=== PATIENT | male | born 1945 | race Caucasian/White ===

== ENCOUNTER 2018-08-01 12:54 | Inpatient (IN) | payer MEDICARE ==
[2018-08-01] MEDS ORDERED: DIPH,PERTUS(ACELL)TETVAC-LF 0.5 ML VIAL IM ONE (13:00)
[2018-08-01] MEDS ORDERED: LIDOCAINE 1% INJ 10MG/ML (20 ML MDV) SQ STA (13:00)
[2018-08-01] MEDS ORDERED: RABIES VACC,HUMAN DIPLOID (PF) 2.5 UNIT KIT IM ONE (13:16)
[2018-08-01] MEDS ORDERED: RABIES IMMUNE GLOB 300 UNIT/ML 5 ML VIAL IM ONE (13:16)
[2018-08-01] MEDS ORDERED: SODIUM CHLORIDE 0.9% 1,000 ML IV STA (13:18)
[2018-08-01] MEDS ORDERED: CLINDAMYCIN 600 MG in DEXTROSE 5% IN WATER 50 ML IVPB STA ×2 (13:37)
[2018-08-01 13:58] LABS: Basophils # (A) 0.1 k/uL (0-0.2); Basophils % (A) 1 %; Eosinophils # (A) 0.3 k/uL (0-0.7); Eosinophils % (A) 3 %; HCT 45.1 % (39.0-53.0); HGB 14.6 gm/dL (13.0-17.5); Lymphocytes % (A) 9 %; MCH 31.4 pg (25.0-35.0); MCHC 32.4 g/dL (31.0-37.0); Mean Platelet Volume 6.9; Monocytes # (A) 0.5 k/uL (0-1.0); Monocytes % (A) 5 %; Neutrophils # (A) 8.6 k/uL (1.3-7.7); Neutrophils % (A) 82 %; Platelet Count 280 k/uL (150-450); RBC 4.64 m/uL (4.30-5.90); RDW 13.5 % (11.5-15.5); WBC 10.6 k/uL (3.8-10.6)
[2018-08-01 14:06] LABS: ALT 42 U/L (21-72); AST 35 U/L (17-59); Alkaline Phosphatase 92 U/L (38-126); Anion Gap 8 mmol/L; Blood Urea Nitrogen 26 mg/dL (9-20); Calcium 9.2 mg/dL (8.4-10.2); Carbon Dioxide 28 mmol/L (22-30); Chloride 103 mmol/L (98-107); Glucose 123 mg/dL (74-99); Potassium 4.3 mmol/L (3.5-5.1); Sodium 139 mmol/L (137-145); Total Bilirubin 0.5 mg/dL (0.2-1.3)
--- NOTE | 2018-08-01 14:38 | XR ---
EXAMINATION TYPE: XR wrist complete RT DATE OF EXAM: 08/01/2018 COMPARISON: None HISTORY: Pain and swelling dog bite TECHNIQUE: Right wrist is examined in 4 projections. FINDINGS: There is prominent soft tissue swelling present. No radiopaque foreign body is evident. No acute fractures are evident. IMPRESSION: 1. No acute osseous abnormality. 2. No radiopaque foreign body. 3. Prominent soft tissue swelling.
--- NOTE | 2018-08-01 14:40 | XR ---
EXAMINATION TYPE: XR hand complete RT DATE OF EXAM: 08/01/2018 COMPARISON: None HISTORY: Pain, dog bite TECHNIQUE: Three-view right hand FINDINGS: No acute fractures are evident. Joint space narrowing is present at the distal interphalang eal joint space. Milder joint space narrowing is present diffusely. No acute fractures are evident. T here is prominent soft tissue swelling present. No radiopaque foreign bodies are evident. IMPRESSION: 1. Prominent soft tissue swelling. 2. Degenerative joint changes. 3. No acute fractures
--- NOTE | 2018-08-01 15:05 | ED ---
General Adult HPI - General Source: patient, RN notes reviewed, old records reviewed Mode of arrival: ambulatory Limitations: no limitations <Jayden Phillips - Last Filed: 08/01/18 15:37> <Damian Mendez - Last Filed: 08/01/18 15:57> - General Chief complaint: Animal Bite Stated complaint: DOG BITE Time Seen by Provider: 08/01/18 13:00 - History of Present Illness Initial comments: 73-year-old male patient passed no history of hypertension, hyperlipidemia presents to ED with infection of his right hand. Patient fourth as bitten by dog on 07/16. Patient was seen in urgent care, at that time patient was prescribed Augmentin, his tetanus updated and he was administered 1 g Rocephin. Patient reports that since then he has had some swelling and some inflammation of the dorsal aspect of his right hand. Patient also reports some erythema. Patient denies any systemic symptoms. Patient denies any fevers chills, nausea vomiting diarrhea, chest pain, shortness of breath. Patient does report that he was advised by the health department to receive rabies prophylaxis as the dogs were unable to be located. Systemic: Pt denies fatigue, myalgia, fever/chills, rash. Pt denies weakness, night sweats, weight loss. Neuro: Pt denies headache, visual disturbances, syncope or pre-syncope. HEENT: Pt denies ocular discharge or irritation, otalgia, rhinorrhea, pharyngitis or notable lymphadenopathy. Cardiopulmonary: Pt denies chest pain, SOB, heart palpitations, dyspnea on exertion. Abdominal/GI: Pt denies abdominal pain, n/v/d. : Pt denies dysuria, burning w/ urination, frequency/urgency. Denies new onset urinary or bowel incontinence. MSK: Pt denies myalgia, loss of strength or function in extremities. Neuro: Pt denies new onset weakness, paresthesias. (Jayden Phillips) - Related Data Allergies Allergy/AdvReac Type Severity Reaction Status Date / Time No Known Allergies Allergy Verified 08/01/18 12:59 Review of Systems ROS Other: All systems not noted in ROS Statement are negative. <Jayden Phillips - Last Filed: 08/01/18 15:37> ROS Other: All systems not noted in ROS Statement are negative. <Damian Mendez - Last Filed: 08/01/18 15:57> ROS Statement: Those systems with pertinent positive or pertinent negative responses have been documented in the HPI. Past Medical History Past Medical History: Hyperlipidemia, Hypertension History of Any Multi-Drug Resistant Organisms: None Reported Past Surgical History: No Surgical Hx Reported Past Psychological History: No Psychological Hx Reported Smoking Status: Never smoker Past Alcohol Use History: None Reported Past Drug Use History: None Reported <Jayden Phillips - Last Filed: 08/01/18 15:37> General Exam Limitations: no limitations <Jayden Phillips - Last Filed: 08/01/18 15:37> - General Exam Comments Initial Comments: Constitutional: NAD, AOX3, Pt has pleasant affect. HEENT: NC/AT, trachea midline, neck supple, no lymphadenopathy. Posterior pharynx non erythematous, without exudates. External ears appear normal, without discharge. Mucous membranes moist. Eyes PERRLA, EOM intact. There is no scleral icterus. No pallor noted. Cardiopulmonary: RRR, no murmurs, rubs or gallops, no JVD noted. Lungs CTAB in anterior and posterior amor. No peripheral edema. Abdominal exam: Abdomen soft and non-distended. Abdomen non-tender to palpation in all 4 quadrants. Bowel sounds active in LLQ. No hepatosplenomegaly. No ecchymosis Neuro: CN II-XII grossly intact. No nuchal rigidity. MSK: Right hand displayed a mild amount of erythema, edema at dorsal aspect. Full active range of motion. Radial pulse +2. 1 x 1 cm area of purulent drainage noted. No streaking. No posterior calf tenderness bilaterally, homans sign negative bilaterally. Posterior tibialis and radial pulse +2 bilaterally. Sensation intact in upper and lower extremities. Full active ROM in upper and lower extremities, 5/5 stregnth. (Jayden Phillips) Course Vital Signs 08/01/18 08/01/18 12:55 15:01 Temperature 98.3 F Pulse Rate 68 70 Respiratory 22 20 Rate Blood Pressure 156/74 155/70 O2 Sat by Pulse 96 96 Oximetry Medical Decision Making - Lab Data Result diagrams: 08/01/18 13:41 08/01/18 13:41 <Jayden Phillips - Last Filed: 08/01/18 15:37> - Lab Data Result diagrams: 08/01/18 13:41 08/01/18 13:41 <Damian Mendez - Last Filed: 08/01/18 15:57> - Medical Decision Making 73-year-old male patient passed no history of hypertension, hyperlipidemia presents to ED with infection of his right hand. Patient fourth as bitten by dog on 07/16. Patient was seen in urgent care, at that time patient was prescribed Augmentin, his tetanus updated and he was administered 1 g Rocephin. Patient reports that since then he has had some swelling and some inflammation of the dorsal aspect of his right hand. Patient also reports some erythema. Patient denies any systemic symptoms. Patient denies any fevers chills, nausea vomiting diarrhea, chest pain, shortness of breath. Patient does report that he was advised by the health department to receive rabies prophylaxis as the dogs were unable to be located. Pt VSS, afebrile. Physical exam displayed: Right tyson d displayed a mild amount of erythema, edema at dorsal aspect. Full active range of motion. Radial pulse +2. 1 x 1 cm area of purulent drainage noted. No streaking. Laboratory investigations revealed non-impressive CBC, CMP. Plain film of hand and wrist displayed soft tissue swelling. Patient administered rabies prophylaxis. Patient started on clindamycin and levofloxacin. Patient will be admitted to hospital for further evaluation. Patient's disease consult that. Case discussed with Dr. Mendez. (Jayden Phillips) I, Laz Mendez, personally saw and examined the patient. I have reviewed and agree with the PA findings, including all diagnostic interpretations and treatment plans as written unless otherwise stated. I was present for the quintero portions of any procedures performed and the inclusive time noted for any critical care statement. (Damian Mendez) - Lab Data Lab Results 08/01/18 08/01/18 08/01/18 Range/Units 13:41 13:41 13:41 WBC 10.6 (3.8-10.6) k/uL RBC 4.64 (4.30-5.90) m/uL Hgb 14.6 (13.0-17.5) gm/dL Hct 45.1 (39.0-53.0) % MCV 97.0 (80.0-100.0) fL MCH 31.4 (25.0-35.0) pg MCHC 32.4 (31.0-37.0) g/dL RDW 13.5 (11.5-15.5) % Plt Count 280 (150-450) k/uL Neutrophils % 82 % Lymphocytes % 9 % Monocytes % 5 % Eosinophils % 3 % Basophils % 1 % Neutrophils # 8.6 H (1.3-7.7) k/uL Lymphocytes # 1.0 (1.0-4.8) k/uL Monocytes # 0.5 (0-1.0) k/uL Eosinophils # 0.3 (0-0.7) k/uL Basophils # 0.1 (0-0.2) k/uL Sodium 139 (137-145) mmol/L Potassium 4.3 (3.5-5.1) mmol/L Chloride 103 (98-107) mmol/L Carbon Dioxide 28 (22-30) mmol/L Anion Gap 8 mmol/L BUN 26 H (9-20) mg/dL Creatinine 0.64 L (0.66-1.25) mg/dL Est GFR (CKD-EPI)AfAm >90 (>60 ml/min/1.73 sqM) Est GFR (CKD-EPI)NonAf >90 (>60 ml/min/1.73 sqM) Glucose 123 H (74-99) mg/dL Plasma Lactic Acid Kole 1.2 (0.7-2.0) mmol/L Calcium 9.2 (8.4-10.2) mg/dL Total Bilirubin 0.5 (0.2-1.3) mg/dL AST 35 (17-59) U/L ALT 42 (21-72) U/L Alkaline Phosphatase 92 (38-126) U/L Total Protein 7.0 (6.3-8.2) g/dL Albumin 4.0 (3.5-5.0) g/dL Disposition <Jayden Phillips - Last Filed: 08/01/18 15:37> <Damian Mendez - Last Filed: 08/01/18 15:57> Clinical Impression: Cellulitis Disposition: ADMITTED IP TO THIS [facility] Condition: Stable Instructions (If sedation given, give patient instructions): Animal Bite (ED) Referrals: Kelechi Mccoy DO [Primary Care Provider] - 1-2 days
[2018-08-01] MEDS ORDERED: NALOXONE 0.4 MG/ML 1 ML VIAL IV PRN (15:35)
[2018-08-01] MEDS ORDERED: SODIUM CHLORIDE 0.9% 1,000 ML IV SCH (15:45)
[2018-08-01] MEDS ORDERED: LEVOFLOXACIN 500MG-D5W PMX 500 MG in DEXTROSE/WATER 1 100ML.BAG IVPB ONE (16:15)
[2018-08-01 17:45] VITALS: BMI 43.2
[2018-08-01] MEDS: AMPICILLIN-SULBACTAM 3 GM in SODIUM CHLORIDE 0.9% 100 ML IVPB SCH ×2 (19:38→23:57)
[2018-08-01] MEDS ORDERED: ALBUTEROL NEBULIZED 2.5 MG/3 ML INHALATION PRN (20:53)
[2018-08-01] MEDS: ATORVASTATIN 40 MG TAB PO SCH (22:01)
[2018-08-02] MEDS: AMPICILLIN-SULBACTAM 3 GM in SODIUM CHLORIDE 0.9% 100 ML IVPB SCH ×4 (05:12→23:59)
[2018-08-02] MEDS: ASPIRIN 81 MG PO SCH (07:24)
[2018-08-02] MEDS: PANTOPRAZOLE 40 MG TABLET PO SCH (07:24)
[2018-08-02] MEDS: CHOLECALCIFEROL 400 UNIT TAB PO SCH (07:25)
[2018-08-02] MEDS: FLUTICASONE 110 MCG INHALER INHALATION SCH ×2 (08:40→21:13)
[2018-08-02] MEDS ORDERED: amLODIPine 5 MG TAB PO SCH (09:00)
--- NOTE | 2018-08-02 10:44 | P.CNOR ---
History of Present Illness - HPI Consult date: 08/02/18 History of present illness: 73-year-old male patient presents to ED with infection of his right hand. He states that he was bitten by a stray dog in his yard on 07/16/2018. Patient was seen in urgent care, at that time and was prescribed Augmentin, his tetanus updated and he was administered 1 g Rocephin. Patient reports that since then he has had some swelling and some inflammation of the dorsal aspect of his right hand. Patient also reports some erythema. Patient denies any systemic symptoms. Patient denies any fevers chills, nausea vomiting diarrhea, chest pain, shortness of breath. Patient does report that he was advised by the health department to receive rabies prophylaxis as the dogs were unable to be located. We're consulted for orthopedic evaluation of the right hand. The patient states that his symptoms have improved significantly since his admission. Past Medical History Past Medical History: Hyperlipidemia, Hypertension History of Any Multi-Drug Resistant Organisms: None Reported Past Surgical History: No Surgical Hx Reported Past Psychological History: No Psychological Hx Reported Smoking Status: Never smoker Past Alcohol Use History: None Reported Past Drug Use History: None Reported Medications and Allergies Home Medications Medication Instructions Recorded Confirmed Type Acetaminophen Tab [Tylenol Tab] 1,000 mg PO Q6H PRN 08/01/18 08/01/18 History Albuterol Nebulized [Ventolin 2.5 mg INHALATION RT-QID PRN 08/01/18 08/01/18 His tory Nebulized] Amoxic-Pot Clav 875-125Mg 1 tab PO BID 08/01/18 08/01/18 History [Augmentin 875-125] Aspirin EC [Ecotrin Low Dose] 81 mg PO DAILY 08/01/18 08/01/18 History Atorvastatin [Lipitor] 40 mg PO HS 08/01/18 08/01/18 History Beclomethasone Dipropionate [Qvar 2 puff INHALATION RT-BID 08/01/18 08/01/18 History 40 mcg Redihaler] Cholecalciferol [Vitamin D3] 400 unit PO DAILY 08/01/18 08/01/18 History Glucosam/Hammad-Msm1/C/Jarod/Bosw 1 tab PO DAILY 08/01/18 08/01/18 History [Glucosamine-Chondroitin Tablet] Ibuprofen [Motrin] 400 mg PO Q6H PRN 08/01/18 08/01/18 History Omeprazole 20 mg PO DAILY 08/01/18 08/01/18 History amLODIPine [Norvasc] 5 mg PO DAILY 08/01/18 08/01/18 History guaiFENesin-DM 600/30MG [Mucinex 1 tab PO Q12H PRN 08/01/18 08/01/18 History Dm] Allergies Allergy/AdvReac Type Severity Reaction Status Date / Time No Known Allergies Allergy Verified 08/01/18 16:32 Physical Examination This is a pleasant 73-year-old male in no acute distress. He is alert and orie nted 3. He is hard of hearing exam of the right hand reveals no erythema or ecchymosis. There are small scabs from puncture wounds about the dorsum of the hand. There is mild soft tissue swelling noted. He has full extension and full flexion of the fingers. He can make a full fist without difficulty or pain. No pain with palpation about the dorsum of the hand. Neurovascular status the uppe r extremity is intact. Results X-rays of the right hand show no bony abnormality. No foreign body noted. No acute fracture identified. - Labs Labs: Abnormal Lab Results - Last 24 Hours (Table) 08/01/18 08/01/18 Range/Units 13:41 13:41 Neutrophils # 8.6 H (1.3-7.7) k/uL BUN 26 H (9-20) mg/dL Creatinine 0.64 L (0.66-1.25) mg/dL Glucose 123 H (74-99) mg/dL H & H 08/01/18 Range/Units 13:41 Hgb 14.6 (13.0-17.5) gm/dL Hct 45.1 (39.0-53.0) % Result Diagrams: 08/01/18 13:41 08/01/18 13:41 Assessment and Plan (1) Dog bite of right hand Current Visit: Yes Status: Acute Code(s): S61.451A - OPEN BITE OF RIGHT HAND , INITIAL ENCOUNTER; W54.0XXA - BITTEN BY DOG, INITIAL ENCOUNTER SNOMED Code(s): 913849267 (2) Cellulitis Current Visit: Yes Status: Acute Code(s): L03.90 - CELLULITIS, UNSPECIFIED SNOMED Code(s): 034511944 Plan: The clinical and x-ray findings are discussed the patient. Since he is improved, we will continue to follow. Continue IV antibiotics. No surgical indication at this time.
[2018-08-02] MEDS ORDERED: methylPREDNISolone SOD SUCCI 125 MG/2 ML VIAL IV STA (14:23)
[2018-08-02] MEDS ORDERED: ALPRAZolam 0.25 MG TAB PO PRN (14:25)
[2018-08-02] MEDS ORDERED: MELATONIN 3 MG TABLET PO PRN (14:25)
[2018-08-02] MEDS ORDERED: LACTULOSE 20 GM/30 ML CUP PO PRN (14:25)
[2018-08-02] MEDS ORDERED: ONDANSETRON 4 MG/2 ML VIAL IVP PRN (14:25)
[2018-08-02] MEDS ORDERED: ACETAMINOPHEN TAB 325 MG TAB PO PRN (14:25)
[2018-08-02] MEDS ORDERED: CALCIUM CARBONATE 500 MG CHEWABLE PO PRN (14:25)
[2018-08-02] MEDS ORDERED: MAGNESIUM HYDROXIDE 2,400 MG/10 ML CUP PO PRN (14:25)
[2018-08-02] MEDS: FUROSEMIDE 10 MG/ML 10 ML VIAL IV SCH ×2 (14:40→23:58)
[2018-08-02] MEDS: ENOXAPARIN 40 MG/0.4 ML SYRINGE SQ SCH (14:44)
--- NOTE | 2018-08-02 15:19 | XR ---
EXAMINATION TYPE: XR chest 2V DATE OF EXAM: 08/02/2018 COMPARISON: NONE HISTORY: Shortness of breath TECHNIQUE: Frontal and lateral views of the chest are obtained. FINDINGS: There is chronic emphysematous change with suggestion of tiny right greater than left pleu ral effusions though 1 costophrenic angle is not blunted on the lateral view. There is some lingular atelectasis and/or infiltrate confirmed on 2 views. The cardiac silhouette size is enlarged. The os seous structures are demineralized. There are few mild compression fracture deformities near thoracol umbar junction. IMPRESSION: Chronic changes and cardiomegaly with tiny right greater left pleural effusions and patch y lingular acute infiltrate and/or atelectasis.
[2018-08-02] MEDS: NAPROXEN 250 MG TAB PO SCH ×2 (15:22→21:15)
[2018-08-02] MEDS: BUDESONIDE 1 MG/2 ML NEBU INHALATION SCH ×2 (15:48→20:48)
[2018-08-02] MEDS: ALBUTEROL NEBULIZED 2.5 MG/3 ML INHALATION SCH ×2 (15:48→20:48)
--- NOTE | 2018-08-02 16:20 | HP ---
HISTORY AND PHYSICAL DATE OF SERVICE: August 01, 2018 PRESENTING COMPLAINT: Dog bite. HISTORY OF PRESENTING COMPLAINT: This is a pleasant 73-year-old patient who follows with Dr. Dickey. On July 16, he was walking up the driveway when a lady was walking the dog on a leash. The dog lashed up and bit his right hand. The patient went right back inside the house, put the water on and cleaned the wound out, but the hand progressed to get swollen, not much pain and decided to come into the ER. The patient does not know the whereabouts of the dog or the access spec. There were no fever and chills. The patient is admitted, started on antibiotics. Earlier today patient was switched to IV Unasyn by Dr. Powell. The patient had swelling which has actually gone down. Pain is not a problem. The patient also noticed that the patient has been rather short of breath for some time. He is not sure he has got asthma and gets easily short winded. The patient also had edema of the lower extremities. Denies any chest pain. Has not really seen anybody for the same. Short of breath some, even at rest. No cough. No fever or chills. REVIEW OF SYSTEMS: CONSTITUTIONAL: Tired. HEENT: None. RESPIRATORY as above. CARDIOVASCULAR: None. GASTROINTESTINAL: None. GENITOURINARY: None. MUSCULOSKELETAL: As above. DERMATOLOGICAL: As above. LYMPHATICS: None. PSYCHIATRY none. NEUROLOGICAL: None. PAST MEDICAL HISTORY: Hypertension, hyperlipidemia. PAST SURGICAL HISTORY: None. SOCIAL HISTORY: Does not smoke or drink alcohol. . Retired from housekeeping. FAMILY HISTORY: Family history reviewed, noncontributory to presentation. HOME MEDICATIONS: 1. Mucinex DM 1 tablet p.o. q.12h p.r.n. 2. Norvasc 5 mg p.o. daily. 3. Omeprazole 20 mg p.o. daily. 4. Glucosamine chondroitin 1 tablet p.o. daily. 5. Vitamin D3 400 units p.o. daily. 6. Q-Arun 40 mcg 2 puffs b.i.d. 7. Lipitor 40 mg q.h.s. 8. Aspirin 81 mg p.o. daily. 9. Augmentin 875 1 tablet p.o. b.i.d. 10.Ventolin 2.5 q.i.d. p.r.n. 11.Tylenol 1000 mg p.o. q.6h p.r.n. ALLERGIES: None. PHYSICAL EXAMINATION: VITAL SIGNS: On examination temp 97.9, pulse 84, respiratory 18, blood pressure 162/71, pulse ox 93 percent on room air. GENERAL APPEARANCE: Well built, BMI 43.2. Sitting at the edge of bed, slightly short of breath. EYES: Pupils equal. Conjunctivae normal. HEENT: External appearance of nose and ears normal. Oral cavity normal. NECK: JVD unable to assess. Mass not palpable. RESPIRATORY: Effort increased. LUNGS: Diminished breath sounds. Prolonged expiration and wheezing. CARDIOVASCULAR: First and second sounds normal. Gross edema present. ABDOMEN: Distended, soft. Liver and spleen not palpable. LYMPHATICS: No lymph nodes palpable in the neck and axilla. PSYCHIATRY: Alert and oriented times three. Mood and affect normal. NEUROLOGICAL: Pupils equal. Cranial nerves grossly intact. Power and sensation grossly intact. EXTREMITIES: Right hand does have a dog bite evan, appears to be healing well. Some puffiness. Mild tenderness. Minimal redness. PSYCHIATRY: Alert and oriented times three. Mood and affect normal. NEUROLOGICAL: Pupils equal cranial nerves grossly intact. Power and sensation grossly intact. MUSCULOSKELETAL: Evidence of osteoarthritis especially in the hands. INVESTIGATIONS: White count 10.6, hemoglobin 14.6, potassium 4.3, BUN 26, creatinine 0.64. ASSESSMENT: 1. Dog bite to the right hand dorsum about 17 days ago. Appears the dog was a domesticated dog. No other history is available about the dog. The patient has got no fever, chills otherwise. Seen by Dr. Powell for IV Unasyn. 2. Acute exacerbation of moderate persistent asthma. 3. Bilateral lower extremity edema. Rule out cor pulmonale versus congestive heart failure, doubt the latter. 4. Morbid obesity BMI 43.2. 5. Essential hypertension. 6. Uncontrolled. 7. Hyperlipidemia. 8. Lower extremity edema could be a side effect of amlodipine. PLAN: The patient is currently on IV Unasyn. We will add some naproxen for anti-inflammatory affect. We will also start the patient on IV Lasix. We will DC the amlodipine and use Zestoretic for blood pressure control to decrease edema. We will get a 2-D echocardiogram. Patient also put on inhaled steroids and a short burst of oral steroids. Care was discussed with the patient. Questions were answered. Copy to Dr. Dickey. MMLYNDON / MARTAN: [id number] /
[2018-08-02] MEDS ORDERED: LEVOFLOXACIN 500MG-D5W PMX 500 MG in DEXTROSE/WATER 1 100ML.BAG IVPB SCH (17:00)
[2018-08-02] MEDS: predniSONE 20 MG TAB PO SCH (18:16)
[2018-08-02] MEDS: LISINOPRIL-HCTZ 20-12.5 MG 1 EACH TAB PO SCH (21:16)
[2018-08-02] MEDS: ATORVASTATIN 40 MG TAB PO SCH (21:16)
[2018-08-03] MEDS: ALBUTEROL NEBULIZED 2.5 MG/3 ML INHALATION SCH ×6 (03:47→19:32)
[2018-08-03] MEDS: AMPICILLIN-SULBACTAM 3 GM in SODIUM CHLORIDE 0.9% 100 ML IVPB SCH ×3 (05:35→18:05)
[2018-08-03] MEDS: FLUTICASONE 110 MCG INHALER INHALATION SCH ×2 (07:21→19:31)
[2018-08-03] MEDS: BUDESONIDE 1 MG/2 ML NEBU INHALATION SCH ×2 (07:22→19:33)
[2018-08-03] MEDS: PANTOPRAZOLE 40 MG TABLET PO SCH (07:22)
[2018-08-03] MEDS: FUROSEMIDE 10 MG/ML 10 ML VIAL IV SCH (07:23)
--- NOTE | 2018-08-03 08:31 | P.PN ---
Subjective Progress Note Date: 08/03/18 Principal diagnosis: Cellulitis right hand, dog bite. This is a 73-year-old male who we are following regarding a dog bite to the right hand. He has no new complaints or concerns today. He states his hand pain is improved. He reports no new problems or concerns. Objective - Vital Signs Vital signs: Vital Signs Temp 97.6 F 08/03/18 07:00 Pulse 91 08/03/18 07:00 Resp 16 08/03/18 07:10 BP 136/70 08/03/18 07:00 Pulse Ox 91 L 08/03/18 07:00 Intake & Output 08/02/18 08/03/18 08/03/18 18:59 06:59 18:59 Intake Total 475 Balance 475 Intake: Oral 475 Other: # Voids 5 1 # Bowel Movements 1 - Exam This is a pleasant 73-year-old male in no acute distress. He is alert and oriented 3. He is short of breath this morning. Exam of the right upper extremity reveals no erythema or ecchymosis. Small healing puncture wounds to the dorsum of the hand have no drainage. He has full wrist and finger motion without difficulty or pain. He can make a full fist. Neurovascular status the upper extremity is intact. - Labs CBC & Chem 7: 08/01/18 13:41 08/01/18 13:41 Labs: Microbiology - Last 24 Hours (Table) 08/01/18 13:41 Blood Culture - Preliminary Blood No Growth after 24 hours Assessment and Plan (1) Dog bite of right hand Current Visit: Yes Status: Acute Code(s): S61.451A - OPEN BITE OF RIGHT HAND, INITIAL ENCOUNTER; W54.0XXA - BITTEN BY DOG, INITIAL ENCOUNTER SNOMED Code(s): 558035354 (2) Cellulitis Current Visit: Yes Status: Acute Code(s): L03.90 - CELLULITIS, UNSPECIFIED SNOMED Code(s): 554412765 Plan: The clinical and x-ray findings are discussed the patient. He may be discharged from an orthopedic standpoint. Follow-up as needed.
[2018-08-03] MEDS: CHOLECALCIFEROL 400 UNIT TAB PO SCH (09:37)
[2018-08-03] MEDS: NAPROXEN 250 MG TAB PO SCH ×3 (09:37→22:16)
[2018-08-03] MEDS: LISINOPRIL-HCTZ 20-12.5 MG 1 EACH TAB PO SCH ×2 (09:37→20:00)
[2018-08-03] MEDS: ENOXAPARIN 40 MG/0.4 ML SYRINGE SQ SCH (09:38)
[2018-08-03] MEDS: ASPIRIN 81 MG PO SCH (09:40)
[2018-08-03] MEDS: predniSONE 20 MG TAB PO SCH (09:40)
--- NOTE | 2018-08-03 10:05 | ECHOF ---
Referral Reason:assess LV function MEASUREMENTS -------- HEIGHT: 152.4 cm WEIGHT: 103.4 kg BP: RVIDd: 2.9 cm (< 3.3) IVSd: 1.3 cm (0.6 - 1.1) LVIDd: 5.2 cm (3.9 - 5.3) LVPWd: 1.4 cm (0.6 - 1.1) IVSs: 1.6 cm LVIDs: 4.4 cm LVPWs: 1.8 cm LAESV Index (A-L): 30.06 ml/m Ao Diam: 4.3 cm (2.0 - 3.7) AV Cusp: 2.3 cm (1.5 - 2.6) LA Diam: 2.9 cm (2.7 - 3.8) MV EXCURSION: 18.048 mm (> 18.000) MV EF SLOPE: 140 mm/s (70 - 150) EPSS: 0.3 cm MV E Marc: 0.74 m/s MV A Marc: 0.44 m/s MV E/A Ratio: 1.68 RAP: 5.00 mmHg RVSP: 14.41 mmHg FINDINGS -------- Sinus rhythm. This was a techncally difficult study with suboptimal views, , Lumason utilized for enhancement of im ages. The left ventricular size is normal. There is mild concentric left ventricular hypertrophy. Overa ll left ventricular systolic function is normal with, an EF between 55 - 60 %. The right ventricle is normal in size. The left atrium is mildly dilated. The right atrial size is normal. 5.0mg OF Lumason UTLIZED: 2 OR MORE WALL SEGMENTS NOT VISUALIZED. There is mild aortic valve sclerosis. There is no evidence of aortic regurgitation. Mild mitral annular calcification present. Mild mitral regurgitation is present. Mild tricuspid regurgitation present. There is no evidence of pulmonary hypertension. The right v entricular systolic pressure, as measured by Doppler, is 14.41mmHg. There is no pulmonic regurgitation present. Aortic Root is mildly dilated and measures 4.1cm. There is no pericardial effusion. CONCLUSIONS -------- 1. This was a techncally difficult study with suboptimal views, , Lumason utilized for enhancement of images. 2. The left ventricular size is normal. 3. There is mild concentric left ventricular hypertrophy. 4. Overall left ventricular systolic function is normal with, an EF between 55 - 60 %. 5. The right ventricle is normal in size. 6. The left atrium is mildly dilated. 7. The right atrial size is normal. 8. 5.0mg OF Lumason UTLIZED: 2 OR MORE WALL SEGMENTS NOT VISUALIZED. 9. Interatrial Septum not well visulized. 10. There is mild aortic valve sclerosis. 11. Mild mitral annular calcification present. 12. Mild tricuspid regurgitation present. 13. There is no evidence of pulmonary hypertension. 14. The right ventricular systolic pressure, as measured by Doppler, is 14.41mmHg. 15. There is no pulmonic regurgitation present. 16. Aortic Root is mildly dilated and measures 4.1cm. 17. There is no pericardial effusion. LEAD FRONT DESK AGENT: Tiffani Combs RDCS
[2018-08-03 11:41] LABS: Calcium 9.8 mg/dL (8.4-10.2); Potassium 4.1 mmol/L (3.5-5.1)
--- NOTE | 2018-08-03 11:50 | P.CONS ---
History of Present Illness - Reason for Consult Consult date: 08/03/18 Dog bite right hand - History of Present Illness This is a 73-year-old male who gives history that on July 16 an unknown dog lunged at him and bit his right hand. The animal was not provoked. There was a young woman walking with the dog with a leash in her hand. Patient and his were unable to find the dog or its tram inspector. Patient presented to the police department to make a report but police were unable to find the tram inspector as well. Patient then went to the urgent care and was prescribed Augmentin and also received Rocephin and tetanus was updated. He denies having any fever or chills at home. He states he is eating and drinking without difficulty. He did not have any improvement with the Augmentin and had increasing redness and swelling to the right hand. He came into [facility] emergency center for evaluation. He has been placed on Unasyn and seen by orthopedics with no plan for any intervention. He has had significant improvement of erythema. Although he continues to have edema this is also improved. Patient does have full range of motion. Patient also presented with lower extremity edema for which a strips were in place. Review of Systems All systems: negative Constitutional: Denies anorexia, Denies chills, Denies fever, Denies poor appetite, Denies weakness Eyes: denies blurred vision, denies pain Ears, nose, mouth and throat: Denies dysphagia, Denies headache, Denies sore throat, Denies vertigo Cardiovascular: Reports leg edema, Denies chest pain, Denies dyspnea on exertion, Denies lightheadedness, Denies shortness of breath, Denies syncope Respiratory: Denies cough, Denies cough with sputum, Denies dyspnea, Denies excessive sputum, Denies hemoptysis, Denies home oxygen, Denies wheezing Gastrointestinal: Denies abdominal pain, Denies diarrhea, Denies loss of appetit e, Denies nausea, Denies vomiting Genitourinary: Denies dysuria, Denies urinary retention Musculoskeletal: Denies frequent falls, Denies gait dysfunction, Denies myalgias Integumentary: Reports wounds, Denies pruritus, Denies rash Neurological: Denies aphasia, Denies change in mentation, Denies change in speech, Denies gait dysfunction, Denies numbness, Denies seizures, Denies weakness Psychiatric: Denies anxiety, Denies depression Endocrine: Denies fatigue, Denies weight change Past Medical History Past Medical History: Hyperlipidemia, Hypertension History of Any Multi-Drug Resistant Organisms: None Reported Past Surgical History: No Surgical Hx Reported Past Psychological History: No Psychological Hx Reported Smoking Status: Never smoker Past Alcohol Use History: None Reported Additional Past Alcohol Use History / Comment(s): Patient is a lifelong nonsmoker. No marijuana or illicit drug use or alcohol use. He lives at home with his . He has worked in the past in housekeeping and maintenance. They do have 1 dog in the home. Past Drug Use History: None Reported Medications and Allergies Home Medications Medication Instructions Recorded Confirmed Type Acetaminophen Tab [Tylenol Tab] 1,000 mg PO Q6H PRN 08/01/18 08/01/18 History Albuterol Nebulized [Ventolin 2.5 mg INHALATION RT-QID PRN 08/01/18 08/01/18 History Nebulized] Amoxic-Pot Clav 875-125Mg 1 tab PO BID 08/01/18 08/01/18 History [Augmentin 875-125] Aspirin EC [Ecotrin Low Dose] 81 mg PO DAILY 08/01/18 08/01/18 History Atorvastatin [Lipitor] 40 mg PO HS 08/01/18 08/01/18 History Beclomethasone Dipropionate [Qvar 2 puff INHALATION RT-BID 08/01/18 08/01/18 History 40 mcg Redihaler] Cholecalciferol [Vitamin D3] 400 unit PO DAILY 08/01/18 08/01/18 History Glucosam/Hammad-Msm1/C/Jarod/Bosw 1 tab PO DAILY 08/01/18 08/01/18 History [Glucosamine-Chondroitin Tablet] Ibuprofen [Motrin] 400 mg PO Q6H PRN 08/01/18 08/01/18 History Omeprazole 20 mg PO DAILY 08/01/18 08/01/18 History amLODIPine [Norvasc] 5 mg PO DAILY 08/01/18 08/01/18 History guaiFENesin-DM 600/30MG [Mucinex 1 tab PO Q12H PRN 08/01/18 08/01/18 History Dm] Allergies Allergy/AdvReac Type Severity Reaction Status Date / Time No Known Allergies Allergy Verified 08/01/18 16:32 Physical Exam Vitals: Vital Signs Temp Pulse Resp BP BP Pulse Ox 08/03/18 07:10 16 08/03/18 07:00 97.6 F 91 16 136/70 91 L 08/03/18 01:30 97.7 F 82 16 141/79 90 L 08/02/18 21:06 87 147/79 08/02/18 19:20 98.5 F 89 18 168/77 95 08/02/18 13:19 98.1 F 68 22 157/66 94 L Intake and Output 08/02/18 08/03/18 08/03/18 22:59 06:59 14:59 Intake Total 475 Balance 475 Intake: Oral 475 Other: # Voids 1 Gen: This is a 73-year-old male. He is sitting on the edge of the bed and appears to be comfortable and in no acute distress. Patient's is at the bedside and answers most questions. HEENT: Head is atraumatic, normocephalic. Pupils equal, round. Sclerae is anicteric. Conjunctiva pink. Patient is known to be hard of hearing. NECK: Supple. No JVD. No lymphadenopathy. No thyromegaly. LUNGS: Clear to auscultation. No wheezes or rhonchi. No intercostal retractions. HEART: Regular rate and rhythm. No murmur. ABDOMEN: Obese. Soft. Bowel sounds are present. No masses. No tenderness. EXTREMITIES: Tu wraps have been removed and edema appears to be much improved. Dorsalis pedis 1+ bilaterally. No open wounds noted. Onychomycosis bilaterally. NEUROLOGICAL: Patient is awake, alert and oriented x3. Cranial nerves 2 through 12 are grossly intact. Results Results: Laboratory Results WBC 10.6 k/uL (3.8-10.6) 08/01/18 13:41 RBC 4.64 m/uL (4.30-5.90) 08/01/18 13:41 Hgb 14.6 gm/dL (13.0-17.5) 08/01/18 13:41 Hct 45.1 % (39.0-53.0) 08/01/18 13:41 MCV 97.0 fL (80.0-100.0) 08/01/18 13:41 MCH 31.4 pg (25.0-35.0) 08/01/18 13:41 MCHC 32.4 g/dL (31.0-37.0) 08/01/18 13:41 RDW 13.5 % (11.5-15.5) 08/01/18 13:41 Plt Count 280 k/uL (150-450) 08/01/18 13:41 Neutrophils % 82 % 08/01/18 13:41 Lymphocytes % 9 % 08/01/18 13:41 Monocytes % 5 % 08/01/18 13:41 Eosinophils % 3 % 08/01/18 13:41 Basophils % 1 % 08/01/18 13:41 Neutrophils # 8.6 k/uL (1.3-7.7) H 08/01/18 13:41 Lymphocytes # 1.0 k/uL (1.0-4.8) 08/01/18 13:41 Monocytes # 0.5 k/uL (0-1.0) 08/01/18 13:41 Eosinophils # 0.3 k/uL (0-0.7) 08/01/18 13:41 Basophils # 0.1 k/uL (0-0.2) 08/01/18 13:41 Sodium 140 mmol/L (137-145) 08/03/18 10:35 Potassium 4.1 mmol/L (3.5-5.1) 08/03/18 10:35 Chloride 101 mmol/L (98-107) 08/03/18 10:35 Carbon Dioxide 29 mmol/L (22-30) 08/03/18 10:35 Anion Gap 10 mmol/L 08/03/18 10:35 BUN 36 mg/dL (9-20) H 08/03/18 10:35 Creatinine 0.96 mg/dL (0.66-1.25) 08/03/18 10:35 Est GFR (CKD-EPI)AfAm 90 (>60 ml/min/1.73 sqM) 08/03/18 10:35 Est GFR (CKD-EPI)NonAf 78 (>60 ml/min/1.73 sqM) 08/03/18 10:35 Glucose 150 mg/dL (74-99) H 08/03/18 10:35 Plasma Lactic Acid Kole 1.2 mmol/L (0.7-2.0) 08/01/18 13:41 Calcium 9.8 mg/dL (8.4-10.2) 08/03/18 10:35 Total Bilirubin 0.5 mg/dL (0.2-1.3) 08/01/18 13:41 AST 35 U/L (17-59) 08/01/18 13:41 ALT 42 U/L (21-72) 08/01/18 13:41 Alkaline Phosphatase 92 U/L (38-126) 08/01/18 13:41 NT-Pro-B Natriuret Pep 184 pg/mL 08/01/18 13:41 Total Protein 7.0 g/dL (6.3-8.2) 08/01/18 13:41 Albumin 4.0 g/dL (3.5-5.0) 08/01/18 13:41 CBC & Chem 7: 08/01/18 13:41 08/03/18 10:35 Labs: Microbiology - Last 24 Hours (Table) 08/01/18 13:41 Blood Culture - Preliminary Blood No Growth after 24 hours Assessment and Plan Plan: This is a 73-year-old male who presented Hospital following a dog bite to the right hand. He is currently on Unasyn and biotics for home will be addressed. He has had his tetanus status updated at the urgent care center. Patient is been followed by orthopedics with no plan for any intervention and he has been cleared for discharge. No active drainage so cultures were not obtained. Blood culture showing no growth after 24 hours. Further recommendations as patient progresses. The above dictated assessment and findings were discussed with Dr. Powell. The impression and plan of care have been directed as dictated. Christiane Levy nurse practitioner acting as scribe for Dr. Powell.
[2018-08-03] MEDS ORDERED: FUROSEMIDE 10 MG/ML 10 ML VIAL IVP SCH (16:00)
--- NOTE | 2018-08-03 16:58 | P.CON ---
Consult Note - . Consult date: 08/03/18 Assessment/Plan:: This is a 73-year-old male who gives history that on July 16 an unknown dog lunged at him and bit his right hand. The animal was not provoked. There was a young woman walking with the dog with a leash in her hand. Patient and his were unable to find the dog or its middle school librarian. Patient presented to the police department to make a report but police were unable to find the middle school librarian as well. Patient then went to the urgent care and was prescribed Augmentin and also received Rocephin and tetanus was updated. He denies having any fever or chills at home. He states he is eating and drinking without difficulty. He did not have any improvement with the Augmentin and had increasing redness and swelling to the right hand. He came into [facility] emergency center for evaluation. He has been placed on Unasyn and seen by orthopedics with no plan for any intervention. He has had significant improvement of erythema. Although he continues to have edema this is also improved. Patient does have full range of motion. Patient also presented with lower extremity edema for which a strips were in place.please see consult note is dictated by nurse practitioner Viviane Christiane Levy. Pleasant 73-year-old male who likely has some early dementia with in his driveway when a woman walking a dog came by him and the dog attacked his hand. He rushed into the house and washed his hand. He didn't think to get a name or number burning information about the dog. Did not recognize the daughter the person walking the animal. Patient also reconciling this was and was treated in the outpatient setting but worsened as came to hospital. Antibiotic therapy was initiated with Unasyn at the time of the consult call. Within hours and is now starting to show marked improvement. Pain is improved. Range of motion is generally normalize. He has no ascending erythema or lymphadenopathy or lymphangitis. Patient's is present in believe she can care for him at home. We'll ask for home care for at least a couple visits to make sure is doing relatively well. He may be discharged home today to complete his course of Augmentin. His rabies prophylaxis has already been initiated and should complete. The only way the vaccine schedule may be interrupted is if the identify the dog middle school librarian in the dog itself and verify its rabies vaccination record. I agree with evaluation, assessment and plan is dictated by nurse practitioner Mrs. Christiane Levy.
--- NOTE | 2018-08-03 19:41 | PN ---
PROGRESS NOTE DATE OF SERVICE: 08/03/2018 PRESENTING COMPLAINT: Short of breath. INTERVAL HISTORY: This patient presented with a dog bite, was on IV Unasyn. Hand is greatly improved. He was also felt to have asthma exacerbation and questionable congestive heart failure, though felt to be less likely. Patient was put on bronchodilators and steroids. Breathing is better. Hand is better. Tolerating a diet. His is present. REVIEW OF SYSTEMS: Done for constitutional, cardiovascular, GI, pulmonary; relevant findings as above. CURRENT MEDICATIONS: Reviewed. They include IV Unasyn, Ventolin. PHYSICAL EXAMINATION: Temperature 97.5, pulse 80, respiration 16, blood pressure 149/66, pulse ox 94%. GENERAL APPEARANCE: Sitting up in a chair. Breathing is much better. EYES: Pupils equal. Conjunctivae normal. NECK: JVD not raised. Mass not palpable. RESPIRATORY: Effort increased. LUNGS: Decreased breath sounds. Much improved wheezing. CARDIOVASCULAR: First and second sounds normal. Decreased edema. ABDOMEN: Soft, non-tender. Liver and spleen not palpable. PSYCHIATRY: Alert and oriented x3. Mood and affect normal. EXTREMITIES: Right arm swelling and redness decreased. INVESTIGATIONS: Potassium 4.1. BUN 36, creatinine 0.96. Two-D echo shows preserved LV function. ASSESSMENT: 1. Right hand dog bite, responding well to current antibiotics. 2. Rabies prophylaxis per Dr. Powell. 3. Acute exacerbation of moderate persistent asthma, with some improvement. 4. Bilateral lower extremity venous insufficiency. Doubt CHF. 5. Morbid obesity; body mass index of 43.2. 6. Essential hypertension. 7. Hyperlipidemia. PLAN: Continue current medication and treatment plan. Will switch the patient to oral Lasix. Keep the current dose of steroids for another 24 hours. Hoping patient can be discharged by tomorrow. MMODL / IJN: [id number] /
--- NOTE | 2018-08-03 19:48 | HP ---
HISTORY AND PHYSICAL HISTORY AND PHYSICAL ADDENDUM: Date of service for history and physical is 08/02/2018. (My H&P was dictated on 08/02/18 at 1435 hours.) The correct date of service is 08/02/2018. MMODL / IJN: [id number] /
[2018-08-03] MEDS: ATORVASTATIN 40 MG TAB PO SCH (20:00)
[2018-08-04] MEDS: AMPICILLIN-SULBACTAM 3 GM in SODIUM CHLORIDE 0.9% 100 ML IVPB SCH ×3 (00:13→11:45)
[2018-08-04 01:55] VITALS: RESP 16
[2018-08-04] MEDS: ALBUTEROL NEBULIZED 2.5 MG/3 ML INHALATION SCH ×3 (03:33→12:30)
[2018-08-04] MEDS: NAPROXEN 250 MG TAB PO SCH (08:03)
[2018-08-04] MEDS: PANTOPRAZOLE 40 MG TABLET PO SCH (08:03)
[2018-08-04] MEDS: predniSONE 20 MG TAB PO SCH (08:03)
[2018-08-04] MEDS: ENOXAPARIN 40 MG/0.4 ML SYRINGE SQ SCH (08:04)
[2018-08-04] MEDS: ASPIRIN 81 MG PO SCH (08:04)
[2018-08-04] MEDS: LISINOPRIL-HCTZ 20-12.5 MG 1 EACH TAB PO SCH (08:04)
[2018-08-04] MEDS: CHOLECALCIFEROL 400 UNIT TAB PO SCH (08:04)
[2018-08-04 09:12] LABS: Anion Gap 9 mmol/L; Blood Urea Nitrogen 47 mg/dL (9-20); Calcium 9.2 mg/dL (8.4-10.2); Carbon Dioxide 31 mmol/L (22-30); Chloride 102 mmol/L (98-107); Glucose 139 mg/dL (74-99); Potassium 3.7 mmol/L (3.5-5.1); Sodium 142 mmol/L (137-145)
[2018-08-04] MEDS: FLUTICASONE 110 MCG INHALER INHALATION SCH (09:23)
[2018-08-04] MEDS: BUDESONIDE 1 MG/2 ML NEBU INHALATION SCH (09:23)
[2018-08-04 09:46] VITALS: BP 131/61; PULSE 84; TEMP 98.7
--- NOTE | 2018-08-04 15:25 | P.PN ---
Subjective Progress Note Date: 08/04/18 This is a 73-year-old male who gives history that on July 16 an unknown dog lunged at him and bit his right hand. The animal was not provoked. There was a young woman walking with the dog with a leash in her hand. Patient and his were unable to find the dog or its audio visual engineer. Patient presented to the police department to make a report but police were unable to find the audio visual engineer as well. Patient then went to the urgent care and was prescribed Augmentin and also received Rocephin and tetanus was updated. He denies having any fever or chills at home. He states he is eating and drinking without difficulty. He did not have any improvement with the Augmentin and had increasing redness and swelling to the right hand. He came into [facility] emergency center for evaluation. He has been placed on Unasyn and seen by orthopedics with no plan for any intervention. He has had significant improvement of erythema. Although he continues to have edema this is also improved. Patient does have full range of motion. Patient also presented with lower extremity edema for which a strips were in place. 08/04/2018 patient is feeling better today. He did develop some increasing shortness of breath and acute exacerbation of underlying pulmonary disease yesterday and his discharge was held. He is a received several respiratory treatments in the dose of steroid and is feeling considerably better. He has denying other acute complaints today. The pain to the right hand is much imp roved with the antibiotic therapy that has initiated since his admission for the significant cellulitis related to the dog bite. He has no complaints of increasing pain and no ascending erythema to the arm. He has no other new acute complaints. She's had no fevers or chills. Objective - Vital Signs Vital signs: Vital Signs Temp 98.7 F 08/04/18 07:00 Pulse 84 08/04/18 07:00 Resp 16 08/04/18 07:00 BP 131/61 08/04/18 07:00 Pulse Ox 93 L 08/04/18 07:00 Intake & Output 08/03/18 08/04/18 08/04/18 18:59 06:59 18:59 Intake Total 475 250 Balance 475 250 Intake: Oral 475 250 Other: # Voids 0 # Bowel Movements 0 - Exam Gen: This is a 73-year-old male. He is sitting on the edge of the bed and appears to be comfortable and in no acute distress. Patient's is at the bedside and answers most questions. HEENT: Head is atraumatic, normocephalic. Pupils equal, round. Sclerae is anicteric. Conjunctiva pink. Patient is known to be hard of hearing. NECK: Supple. No JVD. No lymphadenopathy. No thyromegaly. LUNGS: Only few wheezes are heard at this time. He has symmetrical bilateral air entry no crackles or bronchial sounds are heard HEART: Regular rate and rhythm. No murmur. ABDOMEN: Obese. Soft. Bowel sounds are present. No masses. No tenderness. EXTREMITIES: Tu wraps have been removed and edema appears to be much improved. The bite antonio to the right hand are showing evidence of healing. The swelling and somewhat intensive erythema. No generally resolved. There is no ascending erythema or lymphangitis. There is no epitrochlear lymphadenopathy in the axilla being noted at this time. Dorsalis pedis 1+ bilaterally. No open wounds noted. Onychomycosis bilaterally of the feet. NEUROLOGICAL: Patient is awake, alert and oriented x3. Cranial nerves 2 through 12 are grossly intact. - Labs CBC & Chem 7: 08/01/18 13:41 08/04/18 07:58 Labs: Abnormal Lab Results - Last 24 Hours (Table) 08/04/18 Range/Units 07:58 Carbon Dioxide 31 H (22-30) mmol/L BUN 47 H (9-20) mg/dL Glucose 139 H (74-99) mg/dL Microbiology - Last 24 Hours (Table) 08/01/18 13:41 Blood Culture - Preliminary Blood No Growth after 48 hours Laboratory Results WBC 10.6 k/uL (3.8-10.6) 08/01/18 13:41 RBC 4.64 m/uL (4.30-5.90) 08/01/18 13:41 Hgb 14.6 gm/dL (13.0-17.5) 08/01/18 13:41 Hct 45.1 % (39.0-53.0) 08/01/18 13:41 MCV 97.0 fL (80.0-100.0) 08/01/18 13:41 MCH 31.4 pg (25.0-35.0) 08/01/18 13:41 MCHC 32.4 g/dL (31.0-37.0) 08/01/18 13:41 RDW 13.5 % (11.5-15.5) 08/01/18 13:41 Plt Count 280 k/uL (150-450) 08/01/18 13:41 Neutrophils % 82 % 08/01/18 13:41 Lymphocytes % 9 % 08/01/18 13:41 Monocytes % 5 % 08/01/18 13:41 Eosinophils % 3 % 08/01/18 13:41 Basophils % 1 % 08/01/18 13:41 Neutrophils # 8.6 k/uL (1.3-7.7) H 08/01/18 13:41 Lymphocytes # 1.0 k/uL (1.0-4.8) 08/01/18 13:41 Monocytes # 0.5 k/uL (0-1.0) 08/01/18 13:41 Eosinophils # 0.3 k/uL (0-0.7) 08/01/18 13:41 Basophils # 0.1 k/uL (0-0.2) 08/01/18 13:41 Sodium 142 mmol/L (137-145) 08/04/18 07:58 Potassium 3.7 mmol/L (3.5-5.1) 08/04/18 07:58 Chloride 102 mmol/L (98-107) 08/04/18 07:58 Carbon Dioxide 31 mmol/L (22-30) H 08/04/18 07:58 Anion Gap 9 mmol/L 08/04/18 07:58 BUN 47 mg/dL (9-20) H 08/04/18 07:58 Creatinine 0.91 mg/dL (0.66-1.25) 08/04/18 07:58 Est GFR (CKD-EPI)AfAm >90 (>60 ml/min/1.73 sqM) 08/04/18 07:58 Est GFR (CKD-EPI)NonAf 82 (>60 ml/min/1.73 sqM) 08/04/18 07:58 Glucose 139 mg/dL (74-99) H 08/04/18 07:58 Plasma Lactic Acid Kole 1.2 mmol/L (0.7-2.0) 08/01/18 13:41 Calcium 9.2 mg/dL (8.4-10.2) 08/04/18 07:58 Total Bilirubin 0.5 mg/dL (0.2-1.3) 08/01/18 13:41 AST 35 U/L (17-59) 08/01/18 13:41 ALT 42 U/L (21-72) 08/01/18 13:41 Alkaline Phosphatase 92 U/L (38-126) 08/01/18 13:41 NT-Pro-B Natriuret Pep 184 pg/mL 08/01/18 13:41 Total Protein 7.0 g/dL (6.3-8.2) 08/01/18 13:41 Albumin 4.0 g/dL (3.5-5.0) 08/01/18 13:41 Microbiology 08/01/18 13:41 Blood Blood Culture - Preliminary No Growth after 48 hours Assessment and Plan (1) Dog bite of right hand Narrative/Plan: Pleasant 73-year-old male who likely has some early dementia with in his driveway when a woman walking a dog came by him and the dog attacked his hand. He rushed into the house and washed his hand. He didn't think to get a name or number burning information about the dog. Did not recognize the daughter the person walking the animal. Patient also reconciling this was and was treated in the outpatient setting but worsened as came to hospital. Antibiotic therapy was initiated with Unasyn at the time of the consult call. Within hours and is now starting to show marked improvement. Pain is improved. Range of motion is generally normalize. He has no ascending erythema or lymphadenopathy or lymphangitis. Patient's is present in believe she can care for him at home. We'll ask for home care for at least a couple visits to make sure is doing relatively well. He may be discharged home today to complete his course of Augmentin. His rabies prophylaxis has already been initiated and should complete. The only way the vaccine schedule may be interrupted is if the identify the dog audio visual engineer in the dog itself and verify its rabies vaccination record. 08/04/2018 the patient is having further improvement today. The pain and swelling to the right hand have improved and he is ready for discharge on oral antibody therapy with Augmentin to complete the treatment for the cellulitis of the right hand. The protocol has been initiated to complete his rabies vaccines in the outpatient setting. As noted only after able to find the neighbor who owns a dog and obtain vaccine records will be be able to alter the need for the rabies vaccination. The patient's exacerbation of his COPD appears to be considerably improved and likely will discharge today. Antibiotics of Augmentin are ready sent. Current Visit: Yes Status: Acute Code(s): S61.451A - OPEN BITE OF RIGHT HAND, INITIAL ENCOUNTER; W54.0XXA - BITTEN BY DOG, INITIAL ENCOUNTER SNOMED Co de(s): [id number]
--- NOTE | 2018-08-06 06:10 | DS ---
DISCHARGE SUMMARY DATE OF ADMISSION: 08/01/2018 DATE OF DISCHARGE: 08/04/2018 FINAL DIAGNOSES: 1. Acute exacerbation of moderate persistent asthma, POA. 2. Right hand dog bite. 3. Bilateral lower extremity venous insufficiency. No CHF. 4. Morbid obesity, body mass index 43.2. 5. Essential hypertension. 6. Hyperlipidemia. CONSULTATION: Dr. Nelson Powell from Infectious Disease and Dr. Rayo Hill from Orthopedics. HOSPITAL COURSE: This pleasant 73-year-old gentleman was bitten by dog, held by a lady on a leash in his driveway. The whereabouts of the dog or the irrigator is not known. There was pain and swelling in the right hand and presented for the same. Was put on IV Unasyn and anti- inflammatory, greatly improved. The patient also on presentation found to be in acute asthma exacerbation, was given a burst of steroids and bronchodilators to which he was doing much better. A 2-D echocardiogram was done to rule out CHF. EF was well preserved. The patient's hand was greatly improved by the time of discharge. On examination, temperature 98.7, pulse 84, respirations 16, blood pressure 131/61, pulse ox 93% on room air. LUNGS: Fair entry. Right hand pain, swelling greatly improved. INVESTIGATIONS: Potassium 3.7, BUN 47, creatinine 0.91. DISCHARGE MEDICATIONS: 1. Rabies prophylaxis was coordinated by Dr. Powell. Other discharge medications: 1. Tylenol p.r.n. 2. Ventolin 2.5 q.i.d. p.r.n. 3. Aspirin 81 mg a day. 4. Lipitor 40 mg q.h.s. 5. Qvar 40 two puffs b.i.d. 6. Vitamin D3, 400 units a day. 7. Glucosamine chondroitin 1 tablet p.o. daily. 8. Omeprazole 20 mg p.o. daily. 9. Mucinex DM 1 tablet q.12 p.r.n. 10.Ventolin HFA 1 or 2 puffs q.6 p.r.n. 11.Augmentin 875 one tablet b.i.d. 14 . 12.Zestoretic 20/.5 one tab p.o. b.i.d. 13.Naproxen 250 mg t.i.d. 15 tablets. 14.Prednisone taper. Amlodipine was discontinued because of lower extremity swelling. Follow up with Dr. Powell in one week; Dr. Kelechi Dickey in 3 days. [facility]. Rabies vaccine is being coordinated by Dr. Powell. DONELL / ROSHAN: [id number] /
== END 2018-08-04 16:09 | disposition home or self-care (01) | DRG 603 ==
LOC: EC 12:54 → 4SSUR 17:01
PROVIDERS: ADMIT Hospitalist; ATTEND Hospitalist
DX: L03.113 Cellulitis of right upper limb (principal); J45.41 Moderate persistent asthma with (acute) exacerbation; Z68.41 Body mass index [BMI] 40.0-44.9, adult; E66.01 Morbid (severe) obesity due to excess calories; I87.2 Venous insufficiency (chronic) (peripheral); F03.90 Unspecified dementia, unspecified severity, without behavioral disturbance, psychotic disturbance, mood disturbance, and anxiety; S61.451A Open bite of right hand, initial encounter; E78.5 Hyperlipidemia, unspecified; I10 Essential (primary) hypertension; H91.90 Unspecified hearing loss, unspecified ear; Z79.82 Long term (current) use of aspirin; Z79.899 Other long term (current) drug therapy; Z23 Encounter for immunization; W54.0XXA Bitten by dog, initial encounter
CPT/HCPCS: 36415; 71046; 80048; 80053; 83605; 83880; 85025; 87040; 90375; 90471; 90675; 93306; 94640; 96365; 96367; 96372; 99285

== ENCOUNTER 2018-08-30 15:22 | Inpatient (IN) | payer MEDICARE ==
[2018-08-30] MEDS ORDERED: FUROSEMIDE 10 MG/ML 4 ML VIAL IV STA (16:39)
--- NOTE | 2018-08-30 16:43 | ED ---
General Adult HPI - General Chief complaint: Shortness of Breath Stated complaint: SOB Time Seen by Provider: 08/30/18 15:56 Source: patient Mode of arrival: wheelchair Limitations: no limitations - History of Present Illness Initial comments: Dictation was produced using [employer] dictation software. please excuse any grammatical, word or spelling errors. Chief Complaint: 73-year-old male presents with 2 weeks of shortness of breath. History of Present Illness: It is 73-year-old male. He has a past m edical history of dyslipidemia, hypertension presents today with 2 weeks of shortness of breath. Patient states he's been having worsening dyspnea especially upon exertion. He has no pain complaints at this time. Presents today with his will be to come to the emergency department today. He does report increased swelling in his bilateral lower extremities and around the girth of his abdomen. Does report some shortness of breath with lying supine. Patient has no pain complaints at this time. Denies any history of coronary artery disease. Patient denies any cardiac history. No coughing or constitutional symptoms. Does report that his shortness of breath has been progressively worsen since onset 14 days ago. The ROS documented in this emergency department record has been reviewed and confirmed by me. Those systems with pertinent positive or negative responses have been documented in the HPI. All other systems are other negative and/or noncontributory. PHYSICAL EXAM: General Impression: Alert and oriented x3, not in acute distress HEENT: Normocephalic atraumatic, extra-ocular movements intact, pupils equal and reactive to light bilaterally, mucous membranes moist. Cardiovascular: Heart regular rate and rhythm, S1&S2 audible, no murmurs, rubs or gallops Chest: Mild lung crackles laterally to the lung bases bilaterally Abdomen: Bowel sounds present, abdomen soft, non-tender, non-distended, no organomegaly Musculoskeletal: Pulses present and equal in all extremities, 2+ pitting edema to the bilateral lower extremities up to the knees Motor: no focal deficits noted Neurological: CN II-XII grossly intact, no focal motor or sensory deficits noted Skin: Intact with no visualized rashes Psych: Normal affect and mood ED course: 73-year-old male chief complaint of dyspnea for 2 weeks. Vital signs upon arrival are within acceptable limits.Review vital signs were obtained. Patient had respiratory rate in the 30s. Patient also showing signs of hypoxia on room air. Laboratory evaluation obtained. CBC is unremarkable. No leukocytosis. Coag panel is unremarkable. Urine creatinine shows phthisis suggest dehydration. Cardiac enzymes negative. Elevation and prematurity peptide. Chest x-ray was obtained showing interstitial infiltrates at the lung base. Discussed patient case with Dr. Najera who is willing to accept admission however he did request that a CT angios the chest performed for concerns of possible pulmonary embolus. CT was obtained showing no findings to suggest PE. Patient placed on supplemental oxygen. Patient given antibiotics for possible community acquired pneumonia. Patient be admitted with pulmonology on consult. Patient and family is understandable and agreeable to disposition. EKG interpretation: Ventricular rate 91, sinus rhythm, NM interval 200, QS 92, QTc 469. No NM prolongation, no QTC prolongation, no ST or T-wave changes noted. No old EKG for comparison. EKG shows nonspecific changes with Q waves in lead 3 and aVF - Related Data Home Medications Medication Instructions Recorded Confirmed Acetaminophen Tab [Tylenol] 1,000 mg PO Q6H PRN 08/01/18 08/30/18 Albuterol Nebulized [Ventolin 2.5 mg INHALATION RT-QID PRN 08/01/18 08/30/18 Nebulized] Aspirin EC [Ecotrin Low Dose] 81 mg PO DAILY 08/01/18 08/30/18 Atorvastatin [Lipitor] 40 mg PO HS 08/01/18 08/30/18 Beclomethasone Dipropionate [Qvar 2 puff INHALATION RT-BID 08/01/18 08/30/18 40 mcg Redihaler] Cholecalciferol [Vitamin D3] 400 unit PO DAILY 08/01/18 08/30/18 Glucosam/Hammad-Msm1/C/Jarod/Bosw 1 tab PO DAILY 08/01/18 08/30/18 [Glucosamine-Chondroitin Tablet] Ibuprofen [Motrin] 400 mg PO Q6H PRN 08/01/18 08/30/18 Omeprazole 20 mg PO DAILY 08/01/18 08/30/18 guaiFENesin-DM 600/30MG [Mucinex 1 tab PO Q12H PRN 08/01/18 08/30/18 Dm] amLODIPine [Norvasc] 5 mg PO DAILY 08/30/18 08/30/18 Previous Rx's Medication Instructions Recorded Albuterol Inhaler [Ventolin Hfa 1 - 2 puff INHALATION RT-Q6H PRN 08/04/18 Inhaler] #1 inhaler Allergies Allergy/AdvReac Type Severity Reaction Status Date / Time No Known Allergies Allergy Verified 08/30/18 16:27 Review of Systems ROS Statement: Those systems with pertinent positive or pertinent negative responses have been documented in the HPI. ROS Other: All systems not noted in ROS Statement are negative. Past Medical History Past Medical History: Hyperlipidemia, Hypertension History of Any Multi-Drug Resistant Organisms: None Reported Past Surgical History: No Surgical Hx Reported Past Psychological History: No Psychological Hx Reported Smoking Status: Former smoker Past Alcohol Use History: None Reported Past Drug Use History: None Reported - Past Family History Father Family Medical History: Myocardial Infarction (DE) General Exam Limitations: no limitations Course Vital Signs 08/30/18 08/30/18 08/30/18 15:50 16:15 16:20 Temperature 98.5 F Pulse Rate 83 80 90 Respiratory 18 18 38 H Rate Blood Pressure 127/68 158/83 O2 Sat by Pulse 95 93 L 95 Oximetry 08/30/18 08/30/18 08/30/18 16:30 16:40 16:50 Temperature Pulse Rate 90 88 86 Respiratory 24 33 H 35 H Rate Blood Pressure 158/83 165/75 165/75 O2 Sat by Pulse 95 91 L 91 L Oximetry Medical Decision Making - Lab Data Result diagrams: 08/30/18 16:34 08/30/18 16:34 Lab Results 08/30/18 08/30/18 08/30/18 Range/Units 16:34 16:34 16:34 WBC 7.2 (3.8-10.6) k/uL RBC 4.76 (4.30-5.90) m/uL Hgb 14.7 (13.0-17.5) gm/dL Hct 46.0 (39.0-53.0) % MCV 96.7 (80.0-100.0) fL MCH 30.9 (25.0-35.0) pg MCHC 31.9 (31.0-37.0) g/dL RDW 14.0 (11.5-15.5) % Plt Count 234 (150-450) k/uL Neutrophils % 76 % Lymphocytes % 11 % Monocytes % 8 % Eosinophils % 2 % Basophils % 1 % Neutrophils # 5.4 (1.3-7.7) k/uL Lymphocytes # 0.8 L (1.0-4.8) k/uL Monocytes # 0.6 (0-1.0) k/uL Eosinophils # 0.2 (0-0.7) k/uL Basophils # 0.1 (0-0.2) k/uL PT (9.0-12.0) sec INR (<1.2) APTT (22.0-30.0) sec Sodium 139 (137-145) mmol/L Potassium 4.6 (3.5-5.1) mmol/L Chloride 103 (98-107) mmol/L Carbon Dioxide 30 (22-30) mmol/L Anion Gap 6 mmol/L BUN 28 H (9-20) mg/dL Creatinine 0.71 (0.66-1.25) mg/dL Est GFR (CKD-EPI)AfAm >90 (>60 ml/min/1.73 sqM) Est GFR (CKD-EPI)NonAf >90 (>60 ml/min/1.73 sqM) Glucose 111 H (74-99) mg/dL Calcium 9.3 (8.4-10.2) mg/dL Magnesium 1.7 (1.6-2.3) mg/dL Total Bilirubin 0.6 (0.2-1.3) mg/dL AST 30 (17-59) U/L ALT 39 (21-72) U/L Alkaline Phosphatase 85 (38-126) U/L Troponin I (0.000-0.034) ng/mL NT-Pro-B Natriuret Pep 164 pg/mL Total Protein 6.9 (6.3-8.2) g/dL Albumin 4.2 (3.5-5.0) g/dL 08/30/18 08/30/18 Range/Units 16:34 16:34 WBC (3.8-10.6) k/uL RBC (4.30-5.90) m/uL Hgb (13.0-17.5) gm/dL Hct (39.0-53.0) % MCV (80.0-100.0) fL MCH (25.0-35.0) pg MCHC (31.0-37.0) g/dL RDW (11.5-15.5) % Plt Count (150-450) k/uL Neutrophils % % Lymphocytes % % Monocytes % % Eosinophils % % Basophils % % Neutrophils # (1.3-7.7) k/uL Lymphocytes # (1.0-4.8) k/uL Monocytes # (0-1.0) k/uL Eosinophils # (0-0.7) k/uL Basophils # (0-0.2) k/uL PT 10.1 (9.0-12.0) sec INR 0.9 (<1.2) APTT 26.9 (22.0-30.0) sec Sodium (137-145) mmol/L Potassium (3.5-5.1) mmol/L Chloride (98-107) mmol/L Carbon Dioxide (22-30) mmol/L Anion Gap mmol/L BUN (9-20) mg/dL Creatinine (0.66-1.25) mg/dL Est GFR (CKD-EPI)AfAm (>60 ml/min/1.73 sqM) Est GFR (CKD-EPI)NonAf (>60 ml/min/1.73 sqM) Glucose (74-99) mg/dL Calcium (8.4-10.2) mg/dL Magnesium (1.6-2.3) mg/dL Total Bilirubin (0.2-1.3) mg/dL AST (17-59) U/L ALT (21-72) U/L Alkaline Phosphatase (38-126) U/L Troponin I 0.025 (0.000-0.034) ng/mL NT-Pro-B Natriuret Pep pg/mL Total Protein (6.3-8.2) g/dL Albumin (3.5-5.0) g/dL Disposition Clinical Impression: Dyspnea Disposition: ADMITTED IP TO THIS HOSP Condition: Fair Referrals: Kelechi Mccoy DO [Primary Care Provider] - 1-2 days Decision Time: 19:03
[2018-08-30 16:49] LABS: Basophils # (A) 0.1 k/uL (0-0.2); Basophils % (A) 1 %; Eosinophils # (A) 0.2 k/uL (0-0.7); Eosinophils % (A) 2 %; HGB 14.7 gm/dL (13.0-17.5); Lymphocytes # (A) 0.8 k/uL (1.0-4.8); Lymphocytes % (A) 11 %; MCH 30.9 pg (25.0-35.0); MCHC 31.9 g/dL (31.0-37.0); MCV 96.7 fL (80.0-100.0); Mean Platelet Volume 6.9; Monocytes # (A) 0.6 k/uL (0-1.0); Monocytes % (A) 8 %; Neutrophils # (A) 5.4 k/uL (1.3-7.7); Neutrophils % (A) 76 %; Platelet Count 234 k/uL (150-450); RBC 4.76 m/uL (4.30-5.90); WBC 7.2 k/uL (3.8-10.6)
[2018-08-30 16:58] LABS: ALT 39 U/L (21-72); AST 30 U/L (17-59); Albumin 4.2 g/dL (3.5-5.0); Alkaline Phosphatase 85 U/L (38-126); Anion Gap 6 mmol/L; Blood Urea Nitrogen 28 mg/dL (9-20); Calcium 9.3 mg/dL (8.4-10.2); Carbon Dioxide 30 mmol/L (22-30); Chloride 103 mmol/L (98-107); Glucose 111 mg/dL (74-99); Magnesium 1.7 mg/dL (1.6-2.3); Potassium 4.6 mmol/L (3.5-5.1); Sodium 139 mmol/L (137-145); Total Bilirubin 0.6 mg/dL (0.2-1.3); Total Protein 6.9 g/dL (6.3-8.2)
[2018-08-30 16:59] LABS: INR 0.9 (<1.2); Partial Thromboplastin Time 26.9 sec (22.0-30.0); Prothrombin Time 10.1 sec (9.0-12.0)
--- NOTE | 2018-08-30 17:35 | XR ---
EXAMINATION TYPE: XR chest 2V DATE OF EXAM: 08/30/2018 COMPARISON: 08/02/2018 HISTORY: Short of breath TECHNIQUE: Frontal and lateral views of the chest are obtained. FINDINGS: There is blunting of costophrenic angles. Heart appears slightly enlarged. There is no ove rt heart failure. There is coarse interstitial density in the lower lung amor. There are chest lead s. There is 30% anterior wedging of T12 vertebra that is unchanged. IMPRESSION: Pleural reaction and interstitial infiltrates at the lung bases. No overt heart failure. Chest appear s slightly worse than last exam..
[2018-08-30] MEDS ORDERED: AZITHROMYCIN 500 MG in SODIUM CHLORIDE 0.9% 250 ML IVPB STA (17:39)
--- NOTE | 2018-08-30 18:58 | CT ---
EXAMINATION TYPE: CT angio chest DATE OF EXAM: 08/30/2018 6:25 PM COMPARISON: None HISTORY: Shortness of breath. CT DLP: 536.1 mGycm Automated exposure control for dose reduction was used. CONTRAST: CTA scan of the thorax is performed with IV Contrast, patient injected with 75 mL of Isovue 370, pulm onary embolism protocol. There are 3-D post processed images.. FINDINGS: There is some atelectasis at the lung bases. There is no pleural effusion. There is no pericardial ef fusion. There is normal contrast opacification of the pulmonary arteries. I see no filling defect. There is n o mediastinal adenopathy. There are no hilar masses. 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 IMPRESSION: NO EVIDENCE OF PULMONARY EMBOLISM. PATCHY ATELECTASIS IN THE LOWER LOBES. COMPRESSION FRACTURE T12 NO ALCIRA. This was also present on old chest x-ray 08/02/2018.
[2018-08-30] MEDS ORDERED: ACETAMINOPHEN TAB 325 MG TAB PO PRN (19:00)
[2018-08-30] MEDS ORDERED: ONDANSETRON 4 MG/2 ML VIAL IVP PRN (19:00)
[2018-08-30] MEDS ORDERED: NALOXONE 0.4 MG/ML 1 ML VIAL IV PRN (19:00)
[2018-08-30] MEDS ORDERED: guaiFENesin-DM 600/30MG 1 EACH TAB.ER.12H PO PRN (20:52)
[2018-08-30] MEDS ORDERED: IBUPROFEN 400 MG TAB PO PRN (20:52)
[2018-08-30] MEDS: ATORVASTATIN 40 MG TAB PO SCH (21:23)
[2018-08-30] MEDS: SODIUM CHLORIDE 0.45% 1,000 ML IV SCH (21:23)
[2018-08-30] MEDS: ENOXAPARIN 40 MG/0.4 ML SYRINGE SQ SCH (21:23)
[2018-08-31] MEDS: ASPIRIN 81 MG PO SCH (08:23)
[2018-08-31] MEDS: amLODIPine 5 MG TAB PO SCH (08:23)
[2018-08-31] MEDS: PANTOPRAZOLE 40 MG TABLET PO SCH (08:23)
[2018-08-31] MEDS ORDERED: NON-FORMULARY DRUG (Omeprazole [Omeprazole] 20 MG) PO SCH (09:00)
[2018-08-31] MEDS ORDERED: IPRATROPIUM-ALBUTEROL 3 ML NEB INHALATION PRN (10:33)
--- NOTE | 2018-08-31 11:06 | CONS ---
CONSULTATION This is a 73-year-old gentleman, somewhat of a poor historian, who presents to the emergency department on August 30 with complaints of 2 weeks worth of increasing and progressive shortness of breath. This patient has a history of hyperlipidemia and hypertension. He is obese. He states that over the last couple weeks he has noted increasing abdominal girth, increasing shortness of breath and lower extremity edema. The patient was seen in the emergency room. Today, he denies any fever, chills, cough, phlegm production, or other complaints for that matter. He denies chest pain as well. Anyway, the patient states that because his shortness of breath got worse, he decided to be seen. He apparently mentioned this to his primary doctor, Dr. Dickey, who thought it was "no big deal" according to the patient. Anyway, the patient apparently does not have a history of underlying chronic lung disease. A chest x-ray showed small effusions and possibly some infiltrate at the bases, particularly on the left side. The CT scan of the chest did not reveal a PE but did reveal evidence of bibasilar infiltrates. His symptoms do not really sound like pneumonia, but certainly that could be the explanation. Also looking at the patient, it appears that he might have sleep apnea syndrome and/or Pickwickian syndrome and this might be actually acute cor pulmonale with right-sided heart failure. Anyway, we were asked to see him for the shortness of breath. He is on oxygen therapy and he is feeling better. He was in no acute distress in the emergency room. MEDICATIONS: His home medications included Tylenol, Ventolin updraft machine, aspirin, Lipitor, Qvar, vitamin D3, glucosamine chondroitin, ibuprofen, omeprazole, Mucinex, and Norvasc. He also apparently has been on an albuterol inhaler in the past. ALLERGIES: Allergies are denied. PAST MEDICAL HISTORY: Past medical history includes apparently hyperlipidemia and hypertension. He denies lung disease, but he is on Qvar and albuterol so it makes me think that maybe they are treating him for asthma. He denies other complaints at this time. He is on appropriate medications for both the high blood pressure and the high cholesterol. SURGICAL HISTORY: Surgical history is apparently nil. SOCIAL HISTORY: Positive for remote minimal tobacco history. He smoked when he was very young for maybe a year or so. Denies alcohol use or illicit drug use. FAMILY HISTORY: Family history is positive for myocardial infarction. REVIEW OF SYSTEMS: CONSTITUTIONAL: Negative. NEUROLOGIC: Negative. HEENT: Negative. CARDIOVASCULAR: Negative. PULMONARY: Shortness of breath GI: Negative. : Negative. RHEUMATOLOGIC: Negative. IMMUNOLOGIC: Negative. DERMATOLOGIC: Negative. ENDOCRINOLOGIC: Negative. PHYSICAL EXAMINATION: Current vital signs are reviewed. Temperature is 98.9, heart rate 78, respiratory rate about 20 to 24 breaths per minute, blood pressure 120/74, mean 89 and 2 L saturation 96%. Appears in no acute distress. HEENT: Examination is grossly unremarkable. Mucous membranes are moist. NECK: Supple. Full range of motion. No adenopathy or thyromegaly. Neck veins are flat. CARDIOVASCULAR: Examination reveals regular rhythm and rate. Heart sounds are distant. Heart rate in mid 70s. S1, S2 normal. No distinct murmur. LUNGS: Reveal a few scattered rhonchi and basilar crackles. There is some dullness at the bases. Breath sounds equal bilaterally. There is some very mild expiratory wheezing on forced maneuver. ABDOMEN: Obese. Bowel sounds are heard. There may be a fluid wave. EXTREMITIES: Are intact. There is significant edema. It is 1 to 2+ and pitting. SKIN: Without rash. NEUROLOGIC: Examination is brief but nonfocal. LABORATORY DATA: Laboratory data is reviewed. CBC is normal. PT/INR normal. PTT normal. Electrolytes relatively normal. BUN 28, creatinine 0.71, glucose 111. N terminal proBNP was 164. Troponin was 0.025. The rest of the comprehensive metabolic profile was normal. X-rays and CAT scans are reviewed. EKG is reviewed. It shows sinus rhythm. Current medications are reviewed. The patient is on Tylenol, amlodipine, aspirin, Lipitor, Lovenox, Mucinex, Motrin, Narcan, Zofran, Protonix, and a basic IV. ASSESSMENT: 1. Shortness of breath, of unclear etiology without evidence of pulmonary embolism on CT angiogram. Etiologies would include some occult asthma as the patient was on albuterol and Qvar or may relate to primarily right heart failure, either from sleep apnea syndrome and/or Pickwickian syndrome. The patient does have evidence of right heart failure with probable ascites and lower extremity edema. 2. History of hypertension. 3. Obesity. 4. History of hyperlipidemia. 5. Lifelong nonsmoker. 6. Rule out pulmonary hypertension. PLAN: The patient should have an echocardiogram. I would recommend an outpatient sleep study. In addition, we will add some updrafts. He should be on some antibiotics as well. Additional recommendations and suggestions are forthcoming. Prognosis is guarded. I would agree in giving this patient some Lasix. DONELL / ROSHAN: [id number] /
[2018-08-31] MEDS: IPRATROPIUM-ALBUTEROL 3 ML NEB INHALATION SCH ×4 (12:29→23:15)
[2018-08-31] MEDS: BUDESONIDE 1 MG/2 ML NEBU INHALATION SCH (19:39)
--- NOTE | 2018-08-31 20:00 | HP ---
HISTORY AND PHYSICAL DATE OF ADMISSION: 08/30/2018 DATE OF SERVICE: 08/31/2018 PRESENTING COMPLAINT: Short of breath, wheezing. HISTORY OF PRESENTING COMPLAINT: This is a very pleasant 73-year-old patient who was actually in the hospital just about a month ago with a dog bite. The patient's chronic stable medical conditions include hypertension, hyperlipidemia, some arthritis and reflux. The patient presents with 2 weeks of mild cough, wheezing, shortness of breath. No fever. No chills. Appetite is okay. Tired, rundown. Patient was diagnosed to have exacerbation of asthma, started on bronchodilators. When I saw the patient earlier today he was still rather short of breath and wheezing. REVIEW OF SYSTEMS: CONSTITUTIONAL: Tired. HEENT: None. RESPIRATORY: As above. CARDIOVASCULAR: None. GASTROINTESTINAL: None. GENITOURINARY: None. MUSCULOSKELETAL: Some pain in the joints. DERMATOLOGICAL: None. HEMATOLOGICAL: None. LYMPHATICS: None. PSYCHIATRY: None. NEUROLOGICAL: None. PAST MEDICAL HISTORY: 1. Asthma. 2. Recent right hand dog bite. 3. Bilateral lower extremity venous insufficiency. 4. Morbid obesity. 5. Essential hypertension. 6. Hyperlipidemia. PAST SURGICAL HISTORY: None. SOCIAL HISTORY: Does not smoke or drink alcohol. . Retired from housekeeping. FAMILY HISTORY: Reviewed; noncontributory to presentation. HOME MEDICATIONS: 1. Mucinex DM 1 tablet p.o. q.12 p.r.n. 2. Norvasc 5 mg p.o. daily. 3. Omeprazole 20 mg p.o. daily. 4. Motrin 20 mg p.o. daily. 5. Glucosamine chondroitin 1 tablet p.o. daily. 6. Vitamin D3 400 units p.o. daily. 7. Qvar 40 mcg 2 puffs b.i.d. 8. Lipitor 40 mg at bedtime. 9. Aspirin 81 mg p.o. daily. 10.Ventolin 2.5 q.i.d. p.r.n. 11.Ventolin HFA 1-2 puffs q.6 p.r.n. 12.Tylenol 1000 mg q.6 p.r.n. ALLERGIES: NONE. PHYSICAL EXAMINATION: VITAL SIGNS: Temperature 98.5, pulse 83, respiration 22, blood pressure 127/68, pulse ox 95% on room air. GENERAL APPEARANCE: Well built; BMI 39.5. Lying in bed, short of breath, wheezing. EYES: Pupils equal. Conjunctivae normal. HEENT: External appearance of nose and ears normal. Oral cavity normal. NECK: JVD not raised. Mass not palpable. RESPIRATORY: Effort increased. Not able to speak in full sentences. Accessory muscles are working. CARDIOVASCULAR: First and second sounds normal. No edema. ABDOMEN: Soft, non-tender. Liver and spleen not palpable. LYMPHATIC: No lymph node palpable in neck or axillae. PSYCHIATRY: Alert and oriented x3. Mood and affect slightly anxious-appearing. NEUROLOGICAL: Pupils equal. Cranial nerves grossly intact. Power and sensation grossly intact. INVESTIGATIONS: White count 7.2, hemoglobin 14.7, potassium 4.6, BUN 28, creatinine 0.71. Troponin 0.025. EKG tracing, personally reviewed by me, shows normal sinus rhythm. Chest x-ray film, personally reviewed by me, shows borderline unfolding of the aorta. Chest CTA negative for PE. ASSESSMENT: 1. Acute exacerbation of moderate persistent asthma. 2. Bilateral lower extremity venous insufficiency. 3. Morbid obesity; body mass index more than 40. 4. Essential hypertension. 5. Hyperlipidemia. PLAN: Home medications will be resumed. Patient was put on frequent bronchodilators, inhaled and IV steroids. Accu-Cheks will be followed. Care was discussed with the patient. Questions were answered. MMODL / IJN: [id number] /
[2018-08-31] MEDS: SODIUM CHLORIDE 0.45% 1,000 ML IV SCH (21:11)
[2018-08-31] MEDS: methylPREDNISolone SOD SUCCI 40 MG/ML 1 ML VIAL IV SCH (21:23)
[2018-08-31] MEDS: ATORVASTATIN 40 MG TAB PO SCH (21:23)
[2018-08-31] MEDS: FUROSEMIDE 10 MG/ML 4 ML VIAL IV SCH (21:23)
[2018-08-31] MEDS: ENOXAPARIN 40 MG/0.4 ML SYRINGE SQ SCH (21:23)
[2018-08-31 21:48] LABS: Glucose,Whole Blood 162 mg/dL (75-99)
[2018-08-31] MEDS: INSULIN ASPART (NovoLOG) 100 UNIT/ML VIAL SQ SCH (21:48)
[2018-09-01] MEDS: IPRATROPIUM-ALBUTEROL 3 ML NEB INHALATION SCH ×6 (03:07→23:48)
[2018-09-01] MEDS: methylPREDNISolone SOD SUCCI 40 MG/ML 1 ML VIAL IV SCH ×3 (03:27→21:24)
[2018-09-01 07:56] LABS: Glucose,Whole Blood 160 mg/dL (75-99)
[2018-09-01] MEDS: BUDESONIDE 1 MG/2 ML NEBU INHALATION SCH ×2 (08:09→20:20)
[2018-09-01] MEDS: INSULIN ASPART (NovoLOG) 100 UNIT/ML VIAL SQ SCH ×4 (08:33→21:24)
[2018-09-01] MEDS: PANTOPRAZOLE 40 MG TABLET PO SCH (08:33)
[2018-09-01] MEDS: amLODIPine 5 MG TAB PO SCH (08:33)
[2018-09-01] MEDS: ASPIRIN 81 MG PO SCH (08:33)
[2018-09-01] MEDS: FUROSEMIDE 10 MG/ML 4 ML VIAL IV SCH (08:34)
--- NOTE | 2018-09-01 11:54 | P.PN ---
Subjective Progress Note Date: 09/01/18 Principal diagnosis: Patient is seen today in 09/01/2018 in follow-up on the regular medical floor. He is sitting up at the bedside having lunch. Awake and alert in no acute dist ress. Denies any worsening shortness of breath, cough or congestion. His been seen and evaluated by Dr. Llanes. CAT scan revealed no evidence of pulmonary embolism. Considered asthma, right heart failure, sleep apnea or pickwickian syndrome. Probable ascites and lower extremity edema leaning towards right heart failure. He is maintaining good O2 saturations in the 90s on 2 L/m per nasal cannula. He is afebrile. Hemodynamically stable. Maintained on DuoNeb inhalations, Pulmicort and Perforomist inhalations, IV Solu-Medrol and empiric antibiotics in the form of azithromycin. Objective - Vital Signs Vital signs: Vital Signs Temp 98.1 F 09/01/18 04:49 Pulse 80 09/01/18 08:09 Resp 20 09/01/18 04:49 BP 117/56 09/01/18 04:49 Pulse Ox 92 L 09/01/18 04:49 Intake & Output 08/31/18 09/01/18 09/01/18 18:59 06:59 18:59 Intake Total 1180 Balance 1180 Intake: Oral 1180 Other: # Voids 3 2 - Exam GENERAL EXAM: Alert, active, comfortable in no apparent distress. 2 L nasal cannula HEAD: Normocephalic. EYES: Normal reaction of pupils, equal size. NOSE: Clear with pink turbinates. THROAT: No erythema or exudates. NECK: No masses, no JVD. CHEST: No chest wall deformity. LUNGS: Equal air entry with rhonchi bilaterally with few scattered wheezing. CVS: S1 and S2 normal with no audible murmur, regular rhythm. ABDOMEN: No hepatosplenomegaly, normal bowel sounds, no guarding or rigidity. SPINE: No scoliosis or deformity SKIN: No rashes CENTRAL NERVOUS SYSTEM: No focal deficits, tone is normal in all 4 extremities. EXTREMITIES: There is 1+ peripheral edema. No clubbing, no cyanosis. Peripheral pulses are intact. - Labs CBC & Chem 7: 08/30/18 16:34 08/30/18 16:34 Labs: Abnormal Lab Results - Last 24 Hours (Table) 08/31/18 09/01/18 Range/Units 21:47 07:54 POC Glucose (mg/dL) 162 H 160 H (75-99) mg/dL Assessment and Plan Assessment: Impression: #1 Acute hypoxic respiratory failure of unclear etiology. PE ruled out. Possible component of occult asthma. Most likely right sided heart failure in a patient with suspected ascites and lower extremity edema. There is also some possible component of obstructive sleep apnea and pickwickian syndrome. Possible pulmonary hypertension. #2 Hypertension. #3 Obesity. #4 Hyperlipidemia. #5 Lifelong nonsmoker. Plan: The patient was seen and evaluated by Dr. Llanes. He is improved today as compared to yesterday. We'll order an echocardiogram. Would benefit from outpatient sleep study for suspected obstructive sleep apnea. In the interim, w e'll continue with his current treatment plan. We'll increase his activity as tolerated. We'll continue to follow. I, the cosigning physician, performed a history & physical examination of the patient. Lungs sounds bilateral end expiratory wheeze, scattered rhonchi. Maintaining good O2 saturations in the 90s on liters per minute per nasal cannula. I discussed the assessment and plan of care with my nurse practitioner, Jeannette Ortega. I attest to the above note as dictated by her.
[2018-09-01 12:37] LABS: Glucose,Whole Blood 111 mg/dL (75-99)
[2018-09-01] MEDS: AZITHROMYCIN 500 MG TAB PO SCH (12:44)
[2018-09-01 13:24] LABS: Calcium 9.7 mg/dL (8.4-10.2); Potassium 4.3 mmol/L (3.5-5.1)
--- NOTE | 2018-09-01 13:39 | PN ---
PROGRESS NOTE DATE OF SERVICE: September 01, 2018. PRESENTING COMPLAINT: Short of breath. INTERVAL HISTORY: This patient presented with acute asthma exacerbation. Breathing is better. Less cough. Appetite is getting better. Patient did walk in the hallway. No fever. No chills. REVIEW OF SYSTEMS: Done for constitutional, cardiovascular, GI, pulmonary; relevant findings as above. CURRENT MEDICATIONS: Reviewed that include IV Lasix, IV Solu-Medrol and DuoNeb. PHYSICAL EXAMINATION: VITAL SIGNS: Temperature 98.1, pulse 80, respirations 20, blood pressure 117/56, pulse ox 92 percent on 2 L. GENERAL APPEARANCE: Lying in bed, awake. EYES: Pupils equal. Conjunctivae normal. NECK: JVD not raised. Mass not palpable. RESPIRATORY: Effort increased. LUNGS: Improved air entry, less wheezing. CARDIOVASCULAR: First and second sounds normal. Mild edema. ABDOMEN: Soft, nontender. Liver and spleen not palpable. PSYCHIATRY: Alert and oriented times three. Mood and affect anxious. INVESTIGATIONS: Accu-Cheks are noted. The patient had a 2-D echocardiogram. No evidence of right ventricular strain. EF is preserved. ASSESSMENT: 1. Acute exacerbation of moderate persistent asthma with clinical improvement. 2. Bilateral lower extremity chronic venous insufficiency. 3. Morbid obesity BMI more than 40. 4. Essential hypertension. 5. Hyperlipidemia. 6. The patient probably does not have any right ventricular failure. There is no evidence of right ventricular strain, no secondary pulmonary hypertension. ProBNP is only 167 and 2D echo shows no LV dysfunction. PLAN: At this point, we will stop patient's IV Lasix. Check electrolytes. Clinically patient is much better. Care was discussed with the patient's . Encouraged to ambulate more in the hallway. Hopefully can be discharged tomorrow. MMODL / IJN: [id number] /
[2018-09-01 17:46] LABS: Glucose,Whole Blood 130 mg/dL (75-99)
[2018-09-01 20:04] LABS: Glucose,Whole Blood 159 mg/dL (75-99)
[2018-09-01] MEDS: ATORVASTATIN 40 MG TAB PO SCH (21:22)
[2018-09-01] MEDS: ENOXAPARIN 40 MG/0.4 ML SYRINGE SQ SCH (21:24)
[2018-09-01] MEDS: SODIUM CHLORIDE 0.45% 1,000 ML IV SCH (21:27)
[2018-09-02] MEDS: IPRATROPIUM-ALBUTEROL 3 ML NEB INHALATION SCH ×6 (03:09→23:44)
[2018-09-02] MEDS: methylPREDNISolone SOD SUCCI 40 MG/ML 1 ML VIAL IV SCH ×3 (03:25→21:22)
[2018-09-02 07:03] LABS: Glucose,Whole Blood 170 mg/dL (75-99)
[2018-09-02] MEDS: BUDESONIDE 1 MG/2 ML NEBU INHALATION SCH ×2 (07:40→19:46)
[2018-09-02] MEDS: PANTOPRAZOLE 40 MG TABLET PO SCH (08:04)
[2018-09-02] MEDS: ASPIRIN 81 MG PO SCH (08:04)
[2018-09-02] MEDS: amLODIPine 5 MG TAB PO SCH (08:04)
[2018-09-02] MEDS: INSULIN ASPART (NovoLOG) 100 UNIT/ML VIAL SQ SCH ×4 (08:04→21:22)
[2018-09-02] MEDS: AZITHROMYCIN 500 MG TAB PO SCH (08:05)
[2018-09-02 11:23] LABS: Glucose,Whole Blood 181 mg/dL (75-99)
--- NOTE | 2018-09-02 12:44 | P.PN ---
Subjective Progress Note Date: 09/02/18 Principal diagnosis: Acute hypoxic rest or a failure of unclear etiology On 09/02/2018 patient seen in follow-up on medical surgical floor. He is up ambulating, in the room, tolerating activity well. Room air pulse ox 90%, he is afebrile, hemodynamically stable, he states his breathing is improving, lung sounds reveal minimal wheezes, but apparently this morning patient was quite wheezy and congested, sounding better right now. No fever, no chills, less dyspneic and coughing less. She remains on a combination of Zithromax, IV steroids at 40 mg every 8 hours, nebulized bronchodilators, Pulmicort and Perforomist, and he started to improve. His diuretics have been discontinued yesterday, lower extremity edema has improved. No new labs today Objective - Vital Signs Vital signs: Vital Signs Temp 97.5 F L 09/02/18 11:55 Pulse 96 09/02/18 12:13 Resp 22 09/02/18 11:55 BP 121/57 09/02/18 11:55 Pulse Ox 90 L 09/02/18 11:55 Intake & Output 09/01/18 09/02/18 09/02/18 18:59 06:59 18:59 Intake Total 0 1180 Balance 0 1180 Intake: Intake, IV Titration 0 Amount Sodium Chloride 0.45% 1, 0 000 ml @ 20 mls/hr IV . Q24H [facility] Rx#:[id number] Oral 1180 Other: Voiding Method Toilet # Voids 2 - Exam GENERAL EXAM: Alert, pleasant, 73-year-old obese white male, comfortable in no apparent distress. HEAD: Normocephalic/atraumatic. EYES: Normal reaction of pupils, equal size. Conjunctiva pink, sclera white. NOSE: Clear with pink turbinates. THROAT: No erythema or exudates. NECK: No masses, no JVD, no thyroid enlargement, no adenopathy. CHEST: No chest wall deformity. Symmetrical expansion. LUNGS: Equal air entry with minimal expiratory wheezes CVS: Regular rate and rhythm, normal S1 and S2, no gallops, no murmurs, no rubs ABDOMEN: Soft, nontender. No hepatosplenomegaly, normal bowel sounds, no guarding or rigidity. EXTREMITIES: No clubbing, lower extremity edema 1+, no cyanosis, 2+ pulses and upper and lower extremities. MUSCULOSKELETAL: Muscle strength and tone normal. SPINE: No scoliosis or deformity SKIN: No rashes CENTRAL NERVOUS SYSTEM: Alert and oriented -3. No focal deficits, tone is normal in all 4 extremities. PSYCHIATRIC: Alert and oriented -3. Appropriate affect. Intact judgment and insight. - Labs CBC & Chem 7: 08/30/18 16:34 09/01/18 12:55 Labs: Abnormal Lab Results - Last 24 Hours (Table) 09/01/18 09/01/18 09/01/18 Range/Units 12:55 17:42 20:02 Carbon Dioxide 32 H (22-30) mmol/L BUN 38 H (9-20) mg/dL Glucose 109 H (74-99) mg/dL POC Glucose (mg/dL) 130 H 159 H (75-99) mg/dL 09/02/18 09/02/18 Range/Units 07:02 11:22 Carbon Dioxide (22-30) mmol/L BUN (9-20) mg/dL Glucose (74-99) mg/dL POC Glucose (mg/dL) 170 H 181 H (75-99) mg/dL Assessment and Plan Plan: Assessment: #1 Acute hypoxic respiratory failure of unclear etiology. PE ruled out. Possib le component of occult asthma. Most likely right sided heart failure in a patient with suspected ascites and lower extremity edema. There is also some possible component of obstructive sleep apnea and pickwickian syndrome. Possible pulmonary hypertension. #2 Hypertension. #3 Obesity. #4 Hyperlipidemia. #5 Lifelong nonsmoker. Plan: Patient is improving, breathing easier, will continue current medical treatment, IV steroids, nebulized bronchodilators, increase activity as tolerated. Prob ably in about 24 hours of inpatient treatment, will reevaluate in 24 hours for possibility discharged I performed a history & physical examination of the patient and discussed their management with my nurse practitioner, Desiree Peres. I reviewed the nurse practitioner's note and agree with the documented findings and plan of care. Lung sounds are positive for expiratory wheezes throughout the lung amor. The findings and the impression was discussed with the patient. I attest to the documentation by the nurse practitioner. Time with Patient: Less than 30
[2018-09-02 14:27] VITALS: BMI 39.4
[2018-09-02 17:00] LABS: Glucose,Whole Blood 154 mg/dL (75-99)
[2018-09-02] MEDS: SODIUM CHLORIDE 0.45% 1,000 ML IV SCH (17:49)
[2018-09-02 20:11] LABS: Glucose,Whole Blood 150 mg/dL (75-99)
--- NOTE | 2018-09-02 20:56 | PN ---
PROGRESS NOTE DATE OF SERVICE: September 02, 2018. PRESENTING COMPLAINT: Short of breath. INTERVAL HISTORY: Patient admitted with acute asthma exacerbation. Did have a bit of a flare up last night, was doing better, tolerating a diet. Feels significantly improved. is present. REVIEW OF SYSTEMS: Done for constitutional, cardiovascular, GI, pulmonary and relevant findings as above. CURRENT MEDICATIONS: Reviewed that include IV Solu-Medrol 40 q.8h, bronchodilators. PHYSICAL EXAMINATION: VITAL SIGNS: Temperature 97.5, pulse 98, respirations 22, blood pressure 128/57, pulse ox 98% on room air. GENERAL APPEARANCE: Sitting up on a chair, breathing better. EYES: Pupils equal. Conjunctivae normal. NECK: JVD not raised. Mass not palpable. RESPIRATORY: Effort increased. LUNGS: Improved air entry. CARDIOVASCULAR: First and second sounds normal. Mild edema. ABDOMEN: Soft, distended. Liver and spleen not palpable. PSYCHIATRY: Alert and oriented x3. Mood and affect normal. INVESTIGATIONS: Accu-Cheks are noted. ASSESSMENT: 1. Acute exacerbation of moderate persistent asthma, slowly improving. 2. Bilateral lower extremity chronic venous insufficiency. 3. Morbid obesity BMI more than 40. 4. Essential hypertension. 5. Hyperlipidemia. 6. No evidence of congestive heart failure. PLAN: I had a lengthy discussion with the patient and . Did talk about dietary restrictions and different methodologies to lose weight. We will have dietitian see the patient tomorrow for restricted calorie diet otherwise. Overall, over patient is doing better. Hoping for discharge in next 24 hours. MMODL / IJN: [id number] /
[2018-09-02] MEDS: ATORVASTATIN 40 MG TAB PO SCH (21:22)
[2018-09-02] MEDS: ENOXAPARIN 40 MG/0.4 ML SYRINGE SQ SCH (21:22)
[2018-09-03] MEDS: IPRATROPIUM-ALBUTEROL 3 ML NEB INHALATION SCH ×3 (03:22→11:12)
[2018-09-03 05:12] VITALS: BP 122/59; RESP 20; TEMP 97.6
[2018-09-03] MEDS: BUDESONIDE 1 MG/2 ML NEBU INHALATION SCH (07:06)
[2018-09-03 07:22] LABS: Glucose,Whole Blood 144 mg/dL (75-99)
[2018-09-03] MEDS: amLODIPine 5 MG TAB PO SCH (07:49)
[2018-09-03] MEDS: methylPREDNISolone SOD SUCCI 40 MG/ML 1 ML VIAL IV SCH (07:49)
[2018-09-03] MEDS: AZITHROMYCIN 500 MG TAB PO SCH (07:49)
[2018-09-03] MEDS: INSULIN ASPART (NovoLOG) 100 UNIT/ML VIAL SQ SCH ×2 (07:49→13:05)
[2018-09-03] MEDS: PANTOPRAZOLE 40 MG TABLET PO SCH (07:49)
[2018-09-03] MEDS: ASPIRIN 81 MG PO SCH (07:49)
[2018-09-03 11:29] VITALS: PULSE 80
[2018-09-03 11:54] LABS: Glucose,Whole Blood 136 mg/dL (75-99)
--- NOTE | 2018-09-03 16:49 | P.PN ---
Subjective Progress Note Date: 09/03/18 Principal diagnosis: Acute hypoxic rest or a failure of unclear etiology On 09/02/2018 patient seen in follow-up on medical surgical floor. He is up ambulating, in the room, tolerating activity well. Room air pulse ox 90%, he is afebrile, hemodynamically stable, he states his breathing is improving, lung sounds reveal minimal wheezes, but apparently this morning patient was quite wheezy and congested, sounding better right now. No fever, no chills, less dyspneic and coughing less. She remains on a combination of Zithromax, IV steroids at 40 mg every 8 hours, nebulized bronchodilators, Pulmicort and Perforomist, and he started to improve. His diuretics have been discontinued yesterday, lower extremity edema has improved. No new labs today On 09/03/2018 patient seen in follow-up on medical surgical floor. Continues to improve, room air pulse ox is 92%, afebrile, hemodynamically stable, lower extremity edema has improved, patient is verbalizing improved shortness of breath, no complaint of chest pain, vital signs are stable. Patient has been treated with the oral antibiotics, IV steroids, nebulized bronchodilators, responded well to inpatient treatments, he is tolerating ambulation, no acute events overnight stable for discharge home today, with outpatient follow-up, need outpatient sleep study for investigation of suspected obstructive sleep apnea Objective - Vital Signs Vital signs: Vital Signs Temp 97.6 F 09/03/18 05:00 Pulse 80 09/03/18 11:29 Resp 20 09/03/18 05:00 BP 122/59 09/03/18 05:00 Pulse Ox 92 L 09/03/18 05:00 Intake & Output 09/02/18 09/03/18 09/03/18 18:59 06:59 18:59 Intake Total 0 Balance 0 Weight 97.976 kg Intake: Intake, IV Titration 0 Amount Sodium Chloride 0.45% 1, 0 000 ml @ 20 mls/hr IV . Q24H [facility] Rx#:[id number] Other: Voiding Method Toilet Toilet # Voids 1 - Exam GENERAL EXAM: Alert, pleasant, 73-year-old obese white male, comfortable in no apparent distress. HEAD: Normocephalic/atraumatic. EYES: Normal reaction of pupils, equal size. Conjunctiva pink, sclera white. NOSE: Clear with pink turbinates. THROAT: No erythema or exudates. NECK: No masses, no JVD, no thyroid enlargement, no adenopathy. CHEST: No chest wall deformity. Symmetrical expansion. LUNGS: Equal air entry with clear breath sounds CVS: Regular rate and rhythm, normal S1 and S2, no gallops, no murmurs, no rubs ABDOMEN: Soft, nontender. No hepatosplenomegaly, normal bowel sounds, no guarding or rigidity. EXTREMITIES: No clubbing, lower extremity edema 1+, no cyanosis, 2+ pulses and upper and lower extremities. MUSCULOSKELETAL: Muscle strength and tone normal. SPINE: No scoliosis or deformity SKIN: No rashes CENTRAL NERVOUS SYSTEM: Alert and oriented -3. No focal deficits, tone is normal in all 4 extremities. PSYCHIATRIC: Alert and oriented -3. Appropriate affect. Intact judgment and insight. - Labs CBC & Chem 7: 08/30/18 16:34 09/01/18 12:55 Labs: Abnormal Lab Results - Last 24 Hours (Table) 09/02/18 09/02/18 09/03/18 Range/Units 16:59 20:10 07:21 POC Glucose (mg/dL) 154 H 150 H 144 H (75-99) mg/dL 09/03/18 Range/Units 11:53 POC Glucose (mg/dL) 136 H (75-99) mg/dL Assessment and Plan Plan: Assessment: #1 Acute hypoxic respiratory failure of unclear etiology. PE ruled out. Possible component of occult asthma. Most likely right sided heart failure in a patient with suspected ascites and lower extremity edema. There is also some possible component of obstructive sleep apnea and pickwickian syndrome. Possible pulmonary hypertension. #2 Hypertension. #3 Obesity. #4 Hyperlipidemia. #5 Lifelong nonsmoker. Plan: Patient is doing well, improving, less short of breath, lung and lower extremities, tolerating ambulation, maintaining good oxygenation on room air. Stable for discharge home today on prednisone taper, finish outpatient course of antibiotics, will need outpatient follow-up with Dr. Gil in the office and outpatient sleep study. I performed a history & physical examination of the patient and discussed their management with my nurse practitioner, Desiree Peres. I reviewed the nurse practitioner's note and agree with the documented findings and plan of care. Lung sounds are positive for expiratory wheezes throughout the lung amor. The findings and the impression was discussed with the patient. I attest to the documentation by the nurse practitioner. Time with Patient: Less than 30
--- NOTE | 2018-09-04 05:59 | DS ---
DISCHARGE SUMMARY DATE OF ADMISSION: 08/30/2018 DATE OF DISCHARGE: 09/03/2018 FINAL DIAGNOSES: 1. Acute exacerbation of moderate persistent asthma. 2. Bilateral lower extremity chronic venous insufficiency. 3. Morbid obesity, body mass index more than 40. 4. Essential hypertension. 5. Hyperlipidemia. HOSPITAL COURSE: This patient presented with asthma exacerbation. The patient has a preserved LV function, no evidence of cor pulmonale. Has lower extremity edema from venous insufficiency. Clinically has no evidence of congestive heart failure. BNP was normal. Responded well to bronchodilators and steroids. I had a lengthy talk with the patient and about the patient losing weight, that would help his breathing too. CONSULTATION: Dr. Llanes from Pulmonary. PHYSICAL EXAMINATION: On examination, temperature 97.6, pulse 71, respiration 20, blood pressure 122/59, pulse ox 92% on room air. LUNGS: Improved air entry. CARDIOVASCULAR: First and second sounds normal. Mild edema. INVESTIGATIONS: Accu-Cheks are noted. BUN 38, creatinine 0.97. DISCHARGE MEDICATIONS: 1. Tylenol 1000 mg q.6 p.r.n. 2. Aspirin 81 mg a day. 3. Lipitor 40 mg q.h.s. 4. Qvar 40 mcg 2 puffs b.i.d. 5. Vitamin D3, 400 units p.o. daily. 6. Glucosamine chondroitin 1 tablet p.o. daily. 7. Motrin 400 mg q.6 p.r.n. 8. Omeprazole 20 mg p.o. daily. 9. Mucinex DM 1 tablet p.o. q.12 p.r.n. 10.Ventolin HFA 1 to 2 puffs q.6 p.r.n. 11.Norvasc 5 mg p.o. daily. 12.Ventolin 2.5 nebulizer q.i.d. 13.Prednisone taper. Follow up with Dr. Kelcehi Dickey on 09/07/2018. Follow up with Dr. Gil on 10/02/2018. MMODL / IJN: [id number] /
== END 2018-09-03 13:30 | disposition home health service (06) | DRG 202 ==
LOC: EC 15:22 → 3NMEDONC 19:00
PROVIDERS: ADMIT Hospitalist; ATTEND Hospitalist
DX: J45.41 Moderate persistent asthma with (acute) exacerbation (principal); J96.01 Acute respiratory failure with hypoxia; R18.8 Other ascites; E86.0 Dehydration; E66.01 Morbid (severe) obesity due to excess calories; I10 Essential (primary) hypertension; I87.2 Venous insufficiency (chronic) (peripheral); Z68.39 Body mass index [BMI] 39.0-39.9, adult; Z71.3 Dietary counseling and surveillance; E78.5 Hyperlipidemia, unspecified; K21.9 Gastro-esophageal reflux disease without esophagitis; M19.90 Unspecified osteoarthritis, unspecified site; Z79.82 Long term (current) use of aspirin; Z79.899 Other long term (current) drug therapy; Z79.51 Long term (current) use of inhaled steroids; Z87.891 Personal history of nicotine dependence; Z82.49 Family history of ischemic heart disease and other diseases of the circulatory system
CPT/HCPCS: 36415; 71046; 71275; 80048; 80053; 83735; 83880; 84484; 85025; 85610; 85730; 93005; 94640; 94760; 96365; 96366; 96368; 96375; 99285